=== PATIENT | male | born 1945 | race African-American/Black ===

== ENCOUNTER 2018-07-06 06:34 | Emergency (ER) | payer OTHER ==
[~2018-07-06] VITALS: Ht 180.3 cm; Wt 89.8 kg
[2018-07-06] MEDS ORDERED: TETRACAINE 0.5% OPHTH SOLUTION 4ML BOTTLE. OD ONE (07:30)
[2018-07-06] MEDS ORDERED: FLUORESCEIN OPHTH TEST STRIP. OD ONE (07:30)
[2018-07-06] MEDS ORDERED: ERYTHROMYCIN 0.5% OPHTH OINTMENT 1GM TUBE. OD ONE (07:45)
[2018-07-06] MEDS ORDERED: ERYT1OIN6 OP (08:19)
--- NOTE | 2018-07-06 08:20 | PHYS DOC ---
Past Medical History Past Medical History: Diabetes-Type II, High Cholesterol, Hypertension Past Surgical History: Other Additional Past Surgical Histo: hemorrhoidectomy Alcohol Use: None Drug Use: None Adult General Chief Complaint Chief Complaint: EYE PROBLEMS HPI HPI Patient is a 73 year old [f__sex] who presents with [] Review of Systems Review of Systems Constitutional: Denies fever or chills [] Eyes: Denies change in visual acuity, redness, or eye pain [] HENT: Denies nasal congestion or sore throat [] Respiratory: Denies cough or shortness of breath [] Cardiovascular: No additional information not addressed in HPI [] GI: Denies abdominal pain, nausea, vomiting, bloody stools or diarrhea [] : Denies dysuria or hematuria [] Musculoskeletal: Denies back pain or joint pain [] Integument: Denies rash or skin lesions [] Neurologic: Denies headache, focal weakness or sensory changes [] Endocrine: Denies polyuria or polydipsia [] All other systems were reviewed and found to be within normal limits, except as documented in this note. Current Medications Current Medications Current Medications Medications (Trade) Dose Ordered Sig/Jossie Start Time Stop Time Status Last Admin Dose Admin Diltiazem HCl (Cardizem 24hr Cd) 240 mg 1X ONCE 07/06/18 07:45 07/06/18 07:47 DC 07/06/18 07:56 240 MG Erythromycin (Romycin) 0.25 inch 1X ONCE 07/06/18 07:45 07/06/18 07:46 DC 07/06/18 07:49 0.25 INCH Fluorescein Sodium (Ful-[place]) 1 strip 1X ONCE 07/06/18 07:30 07/06/18 07:33 DC 07/06/18 07:48 1 STRIP Tetracaine HCl (Tetracaine) 2 drop 1X ONCE 07/06/18 07:30 07/06/18 07:33 DC 07/06/18 07:48 2 DROP Allergies Allergies Allergies Coded Allergies Type Severity Reaction Last Updated Verified lisinopril Adverse Reaction Intermediate coughing 07/06/18 Yes Physical Exam Physical Exam Constitutional: Well developed, well nourished, no acute distress, non-toxic appearance. [] HENT: Normocephalic, atraumatic, bilateral external ears normal, oropharynx moist, no oral exudates, nose normal. [] Eyes: PERRLA, EOMI, conjunctiva normal, no discharge. [] Neck: Normal range of motion, no tenderness, supple, no stridor. [] Cardiovascular:Heart rate regular rhythm, no murmur [] Lungs & Thorax: Bilateral breath sounds clear to auscultation [] Abdomen: Bowel sounds normal, soft, no tenderness, no masses, no pulsatile masses. [] Skin: Warm, dry, no erythema, no rash. [] Back: No tenderness, no CVA tenderness. [] Extremities: No tenderness, no cyanosis, no clubbing, ROM intact, no edema. [] Neurologic: Alert and oriented X 3, normal motor function, normal sensory function, no focal deficits noted. [] Psychologic: Affect normal, judgement normal, mood normal. [] Tonopen pressures: 24, 22, 24 of right eye Current Patient Data Vital Signs Vital Signs Date Time Temp Pulse Resp B/P (MAP) Pulse Ox O2 Delivery O2 Flow Rate FiO2 07/06/18 07:56 87 184/85 07/06/18 07:15 98.3 20 96 Room Air 98.3 EKG EKG [] Radiology/Procedures Radiology/Procedures [] Course & Med Decision Making Course & Med Decision Making Pertinent Labs and Imaging studies reviewed. (See chart for details) [] Dragon Disclaimer Dragon Disclaimer This electronic medical record was generated, in whole or in part, using a voice recognition dictation system. Departure Departure Impression: Primary Impression: Corneal abrasion Disposition: 01 HOME, SELF-CARE Condition: STABLE Referrals: NO PCP (PCP) Liz LIU MD Patient Instructions: Eye - Corneal Abrasion, [id number] Scripts Erythromycin Base (Erythromycin) 1 Gm Oint...g. 0.5 INCH OP QID for 5 Days, MISC Prov: CAMDEN OLIVERA DO 07/06/18 Problem Qualifiers Primary Impression: Corneal abrasion Encounter type: initial encounter Laterality: right Qualified Codes: S05.01XA - Injury of conjunctiva and corneal abrasion without foreign body, right eye, initial encounter CAMDEN OLIVERA DO Jul 06, 2018 08:20
[2018-07-06 08:23] VITALS: BP 173/87
== END 2018-07-06 08:23 | disposition home or self-care (01) ==
LOC: ER 06:34
DX: S05.01XA Injury of conjunctiva and corneal abrasion without foreign body, right eye, initial encounter (principal); E11.9 Type 2 diabetes mellitus without complications; E78.00 Pure hypercholesterolemia, unspecified; I10 Essential (primary) hypertension; Z88.8 Allergy status to other drugs, medicaments and biological substances; X58.XXXA Exposure to other specified factors, initial encounter; Y93.89 Activity, other specified; Y92.89 Other specified places as the place of occurrence of the external cause; Y99.8 Other external cause status
CPT/HCPCS: 99284

== ENCOUNTER 2021-05-28 16:45 | Inpatient (IN) | payer MEDICARE, OTHER ==
[~2021-05-28] VITALS: Ht 180.3 cm; Wt 86.4 kg
[~2021-05-28 16:45] MED LIST: ERYT1OIN6 OP
[2021-05-28] MEDS ORDERED: NITROGLYCERIN SUBLINGUAL 0.4 MG BOTTLE OF 25. SL PRN (17:00)
--- NOTE | 2021-05-28 17:28 | PHYS DOC ---
Past Medical History Past Medical History: Diabetes-Type II, High Cholesterol, Hypertension Past Surgical History: Other Additional Past Surgical Histo: hemorrhoidectomy, Abdomen Trauma surgery Smoking Status: Never Smoker Alcohol Use: None Drug Use: None General Adult EDM: Chief Complaint: NAUSEA/VOMITING/DIARRHEA HPI: HPI: Patient is a 76 year old male who presents with EMS for nausea and vomiting, dizziness that started last night. Patient reports he has vomited multiple times today as well. Denies fever, denies diarrhea. No chest pain or shortness of breath. Denies take anything at home for symptoms. History of hypertension, diabetes. Review of Systems: Review of Systems: ROS At least 10 ROS systems have been reviewed and are negative except as documented in the HPI. General: Negative except as outlined in HPI above. Skin: Negative except as outlined in HPI above. HEENT: Negative except as outlined in HPI above. Neck: Negative except as outlined in HPI above. Respiratory: Negative except as outlined in HPI above.. Cardiovascular: Negative except as outlined in HPI above. Abdomen: Negative except as outlined in HPI above. : Negative except as outlined in HPI above. Back/MSK: Negative except as outlined in HPI above. Neuro: Negative except as outlined in HPI above. Psych: Negative except as outlined in HPI above. Heart Score: C/O Chest Pain: No Risk Factors: Risk Factors: DM, Current or recent (<one month) smoker, HTN, HLP, family history of CAD, obesity. Risk Scores: Score 0 - 3: 2.5% MACE over next 6 weeks - Discharge Home Score 4 - 6: 20.3% MACE over next 6 weeks - Admit for Clinical Observation Score 7 - 10: 72.7% MACE over next 6 weeks - Early Invasive Strategies Current Medications: Current Medications Medications (Trade) Dose Ordered Sig/Jossie Start Time Stop Time Status Last Admin Dose Admin Nitroglycerin (Nitrostat) 0.4 mg PRN Q5MIN PRN 05/28/21 17:00 Allergies: Allergies: Allergies Coded Allergies Type Severity Reaction Last Updated Verified lisinopril Adverse Reaction Intermediate coughing 07/06/18 Yes Physical Exam: PE: Constitutional: Well developed, no acute distress, non-toxic appearance. [] HENT: Normocephalic, bilateral external ears normal, oropharynx moist Eyes: PERRLA, conjunctiva normal, no discharge. [] Neck: Normal range of motion, no tenderness, no stridor. [] Cardiovascular:Heart rate regular rhythm, no murmur [] Lungs & Thorax: Bilateral breath sounds clear to auscultation [] Abdomen: Bowel sounds normal, soft, no tenderness, no masses, no pulsatile masses. [] Skin: Warm, dry, no erythema, no rash. [] Back: No tenderness, no CVA tenderness. [] Extremities: No tenderness, no cyanosis, no clubbing, ROM intact, no edema. [] Neurologic: Alert and oriented X 3, normal motor function, normal sensory function, no focal deficits noted. [] Psychologic: Affect normal, judgement normal, mood normal. [] Current Patient Data: Vital Signs: Vital Signs Date Time Temp Pulse Resp B/P (MAP) Pulse Ox O2 Delivery O2 Flow Rate FiO2 05/28/21 16:45 98.6 92 16 192/103 (132) 98 Room Air 98.6 EKG: EKG: Sinus rhythm, heart rate [address] elevation or depression. [] Radiology/Procedures: Radiology/Procedures: [] Course & Med Decision Making: Course & Med Decision Making Pertinent Labs and Imaging studies reviewed. (See chart for details) [] 76-year-old male presents with nausea and vomiting and dizziness since yesterday. Patient denying chest pain or shortness of breath. Work-up in ER consisted of EKG, urinalysis, labs, troponin, BMP, chest x-ray. Patient's nausea treated while in the ER. Patient given NS bolus. EMS had concerns for STEMI based on patient's EKG. Dr. Curiel was consulted by Dr. Lazaro regarding patient's EKG. Dr. Curiel canceled the STEMI. Patient's blood pressure is elevated on arrival. Patient given sublingual nitro. Patient's blood pressure improved after nitro administration. 178/98. Denying pain. Patient also reports that his nausea has improved since medication was administered. Troponins elevated 1994. I called Dr. Curiel and updated him on patient's status. Dr. Curiel recommended heparin drip to be started and patient be admitted for a heart cath in the morning. Heparin bolus [place] [address] , creatinine 1.7. All other labs are unremarkable. Discussed all results with patient. Patient is appreciative and okay with admission plan. Spoke with Dr. Akers who will be accepting patient for NSTEMI, nausea vomiting and dizziness. Serena Disclaimer: Serena Disclaimer: This electronic medical record was generated, in whole or in part, using a voice recognition dictation system. Departure Departure Impression: Primary Impression: NSTEMI (non-ST elevated myocardial infarction) Additional Impressions: Dizziness Nausea & vomiting Qualified Codes: R11.2 - Nausea with vomiting, unspecified Disposition: ADMITTED INPATIENT Admitting Physician: RAS Condition: STABLE Referrals: NO PCP (PCP) JANESSA MESSER APRN May 28, 2021 17:28
[2021-05-28 17:44] LABS: BASO % 1 % (0-3); EOS % 0 % (0-3); HEMATOCRIT 47.9 % (39.0-53.0); HEMOGLOBIN 15.1 g/dL (13.0-17.5); LYMPH # 0.9 x10^3/uL (1.0-4.8); LYMPH % 15 % (24-48); MEAN CORPUSCULAR HEMOGLOBIN 27 pg (25-35); MEAN CORPUSCULAR HGB CONC 32 g/dL (31-37); MEAN CORPUSCULAR VOLUME 85 fL (79-100); MONO # 0.2 x10^3/uL (0.0-1.1); MONO % 3 % (0-9); NEUT # 4.9 x10^3/uL (1.8-7.7); NEUT % 82 % (31-73); PLATELET COUNT 231 x10^3/uL (140-400); RED BLOOD COUNT 5.64 x10^6/uL (4.30-5.70); RED CELL DISTRIBUTION WIDTH 14.5 % (11.5-14.5)
[2021-05-28] MEDS ORDERED: IV NORMAL SALINE 1000ML BAG 1,000 ML IV SCH (17:45)
[2021-05-28 17:58] LABS: CALCIUM 9.1 mg/dL (8.5-10.1); CREATININE 1.7 mg/dL (0.7-1.3); GFR 47.9; POTASSIUM 4.2 mmol/L (3.5-5.1)
[2021-05-28] MEDS ORDERED: ONDANSETRON PF 4 MG/2 ML VIAL. IVP ONE (18:00)
[2021-05-28 18:03] LABS: ALBUMIN 2.8 g/dL (3.4-5.0); ALBUMIN/GLOBULIN RATIO 0.5 (1.0-1.7); TOTAL BILIRUBIN 0.8 mg/dL (0.2-1.0); TOTAL PROTEIN 8.3 g/dL (6.4-8.2)
[2021-05-28] MEDS ORDERED: HEPARIN 25,000UTS/250ML PREMIX 250 ML IV PRN (18:45)
[2021-05-28] MEDS ORDERED: HEPARIN for IV BOLUS 10,000 UNIT/10 ML VIAL. IV PRN ×3 (18:45→20:30)
--- NOTE | 2021-05-28 18:59 | RAD ---
XR CHEST 1V Clinical History: Reason: dizzy / Spl. Instructions: / History: Technique: AP view of the chest was obtained at 05/28/2021 6:07 PM. Comparison: None. Findings: The heart is normal size. The pulmonary vessels appear normal. Decreased reticular opacities of the l ungs. Patchy opacity in the lung bases and obscuration of the diaphragm. Impression: Pulmonary infiltrates could be CHF or atypical pneumonia. Electronically signed by: Sheldon Taveras III, MD (05/28/2021 6:56 PM) [facility]
--- NOTE | 2021-05-28 19:31 | PDOC1 ---
History and Physical Date of Service: DOS: DATE: 05/28/21 TIME: 19:31 Allergies: Allergies: Coded Allergies: lisinopril (Verified Adverse Reaction, Intermediate, coughing, 07/06/18) Current Medications: Current Medications Current Medications Nitroglycerin (Nitrostat) 0.4 mg PRN Q5MIN PRN SL CHEST PAIN; Start 05/28/21 at 17:00 Ondansetron HCl (Zofran) 4 mg 1X ONCE IVP ; Start 05/28/21 at 18:00; Stop 05/28/21 at 18:01; Status DC Sodium Chloride 1,000 ml @ 1,000 mls/hr Q1H IV Last administered on 05/28/21at 18:17; Start 05/28/21 at 17:45; Stop 05/28/21 at 18:44; Status DC Heparin Sodium/ Dextrose 250 ml @ 10 mls/hr CONT PRN IV PER PROTOCOL; Start 05/28/21 at 18:45 Heparin Sodium (Porcine) (Heparin Sodium) 2,300 unit PRN Q6HRS PRN IV FOR UFH LEVEL LESS THAN 0.2; Start 05/28/21 at 18:45 Active Scripts Active Erythromycin (Erythromycin Base) 1 Gm Oint...g. 0.5 Inch OP QID 5 Days ROS: Review of Systems Review of System REVIEW OF SYSTEMS: GENERAL: Denies weakness SKIN: No bruising, hair changes or rashes. EYES: No blurred, double or loss of vision. NOSE AND THROAT: No history of nosebleeds, hoarseness or sore throat. HEART: No history of palpitations, chest pain or shortness of breath on exertion. LUNGS: Denies cough, hemoptysis, wheezing or shortness of breath. GASTROINTESTINAL: Denies changes in appetite, nausea, vomiting, diarrhea or constipation. GENITOURINARY: No history of frequency, urgency, hesitancy or nocturia. NEUROLOGIC: Denies history of numbness, tingling, or tremor. PSYCHIATRIC: No history of panic, anxiety or depression. ENDOCRINE: No history of heat or cold intolerance, polyuria or polydipsia. EXTREMITIES: Denies joint pain, pain on walking or stiffness. Physical Exam: Vital Signs: Vital Signs Date Time Temp Pulse Resp B/P (MAP) Pulse Ox O2 Delivery O2 Flow Rate FiO2 05/28/21 16:45 98.6 92 16 192/103 (132) 98 Room Air 98.6 Physcial Exam: GEN: No apparent distress. Alert and oriented HEENT: Normal cephalic, atraumatic, external auditory canals are patent EYES: Extraocular muscles are intact, pupil are equally round and reactive to light and accommodation MUSCULOSKELETAL: Well developed , well nourished, good range of motion ENDOCRINE: No thyromegaly was palpated LYMPHATICS: No cervical chain or axillary nodes were noted HEMATOPOIETIC: No bruising NECK: Supple, no JVD, no thyromegaly was noted LUNGS: Clear to auscultation in all lung sosa without rhonchi or wheezing HEART: RRR, S!, S2 present. Peripheral pulses intact, no obvious murmurs noted ABDOMEN: Soft, nontender. Positive bowel sounds, no organomegaly, normal bowel sounds EXTREMITIES: Without clubbing, cyanosis, or edema. Pedal pulses intact. Negative Homans sign NEUROLOGIC: Normal speech and tone. A&O x 3, moves all extremities, no obvious focal deficits PSYCHIATRIC: Normal affect, normal mood. Stable SKIN: No ulcerations or rashes, good skin turgor, no jaundice VASCULAR: Good capillary refill, neurovascular bundle appears to be intact Labs: Labs: Laboratory Tests Test 05/28/21 17:00 White Blood Count 6.0 x10^3/uL (4.0-11.0) Red Blood Count 5.64 x10^6/uL (4.30-5.70) Hemoglobin 15.1 g/dL (13.0-17.5) Hematocrit 47.9 % (39.0-53.0) Mean Corpuscular Volume 85 fL (79-100) Mean Corpuscular Hemoglobin 27 pg (25-35) Mean Corpuscular Hemoglobin Concent 32 g/dL (31-37) Red Cell Distribution Width 14.5 % (11.5-14.5) Platelet Count 231 x10^3/uL (140-400) Neutrophils (%) (Auto) 82 % (31-73) Lymphocytes (%) (Auto) 15 % (24-48) Monocytes (%) (Auto) 3 % (0-9) Eosinophils (%) (Auto) 0 % (0-3) Basophils (%) (Auto) 1 % (0-3) Neutrophils # (Auto) 4.9 x10^3/uL (1.8-7.7) Lymphocytes # (Auto) 0.9 x10^3/uL (1.0-4.8) Monocytes # (Auto) 0.2 x10^3/uL (0.0-1.1) Eosinophils # (Auto) 0.0 x10^3/uL (0.0-0.7) Basophils # (Auto) 0.0 x10^3/uL (0.0-0.2) Sodium Level 139 mmol/L (136-145) Potassium Level 4.2 mmol/L (3.5-5.1) Chloride Level 102 mmol/L (98-107) Carbon Dioxide Level 25 mmol/L (21-32) Anion Gap 12 (6-14) Blood Urea Nitrogen 26 mg/dL (8-26) Creatinine 1.7 mg/dL (0.7-1.3) Estimated GFR (Cockcroft-Gault) 47.9 BUN/Creatinine Ratio 15 (6-20) Glucose Level 424 mg/dL (70-99) Calcium Level 9.1 mg/dL (8.5-10.1) Magnesium Level 2.0 mg/dL (1.8-2.4) Total Bilirubin 0.8 mg/dL (0.2-1.0) Aspartate Amino Transf (AST/SGOT) 35 U/L (15-37) Alanine Aminotransferase (ALT/SGPT) 24 U/L (16-63) Alkaline Phosphatase 134 U/L (46-116) Troponin I High Sensitivity 1995 ng/L (4-75) RA-Ptu-V-Type Natriuretic Peptide 19192 pg/mL (0-124) Total Protein 8.3 g/dL (6.4-8.2) Albumin 2.8 g/dL (3.4-5.0) Albumin/Globulin Ratio 0.5 (1.0-1.7) Laboratory Tests Test 05/28/21 17:00 White Blood Count 6.0 x10^3/uL (4.0-11.0) Red Blood Count 5.64 x10^6/uL (4.30-5.70) Hemoglobin 15.1 g/dL (13.0-17.5) Hematocrit 47.9 % (39.0-53.0) Mean Corpuscular Volume 85 fL (79-100) Mean Corpuscular Hemoglobin 27 pg (25-35) Mean Corpuscular Hemoglobin Concent 32 g/dL (31-37) Red Cell Distribution Width 14.5 % (11.5-14.5) Platelet Count 231 x10^3/uL (140-400) Neutrophils (%) (Auto) 82 % (31-73) Lymphocytes (%) (Auto) 15 % (24-48) Monocytes (%) (Auto) 3 % (0-9) Eosinophils (%) (Auto) 0 % (0-3) Basophils (%) (Auto) 1 % (0-3) Neutrophils # (Auto) 4.9 x10^3/uL (1.8-7.7) Lymphocytes # (Auto) 0.9 x10^3/uL (1.0-4.8) Monocytes # (Auto) 0.2 x10^3/uL (0.0-1.1) Eosinophils # (Auto) 0.0 x10^3/uL (0.0-0.7) Basophils # (Auto) 0.0 x10^3/uL (0.0-0.2) Sodium Level 139 mmol/L (136-145) Potassium Level 4.2 mmol/L (3.5-5.1) Chloride Level 102 mmol/L (98-107) Carbon Dioxide Level 25 mmol/L (21-32) Anion Gap 12 (6-14) Blood Urea Nitrogen 26 mg/dL (8-26) Creatinine 1.7 mg/dL (0.7-1.3) Estimated GFR (Cockcroft-Gault) 47.9 BUN/Creatinine Ratio 15 (6-20) Glucose Level 424 mg/dL (70-99) Calcium Level 9.1 mg/dL (8.5-10.1) Magnesium Level 2.0 mg/dL (1.8-2.4) Total Bilirubin 0.8 mg/dL (0.2-1.0) Aspartate Amino Transf (AST/SGOT) 35 U/L (15-37) Alanine Aminotransferase (ALT/SGPT) 24 U/L (16-63) Alkaline Phosphatase 134 U/L (46-116) Troponin I High Sensitivity 1995 ng/L (4-75) TS-Bgr-U-Type Natriuretic Peptide 57314 pg/mL (0-124) Total Protein 8.3 g/dL (6.4-8.2) Albumin 2.8 g/dL (3.4-5.0) Albumin/Globulin Ratio 0.5 (1.0-1.7) Justifications for Admission Other Justification HERBER MADDEN MD May 28, 2021 19:31
[2021-05-28 20:11] LABS: BARBITURATES NEG (NEG); BENZODIAZEPINES NEG (NEG); CANNABINOIDS NEG (NEG); COCAINE NEG (NEG); METHADONE NEG (NEG); OPIATES NEG (NEG); PHENCYCLIDINE NEG (NEG)
[2021-05-28 20:12] LABS: AMPHETAMINE/METHAMPHETAMINE NEG (NEG)
[2021-05-28 20:41] LABS: CLARITY,URINE CLEAR; COLOR,URINE YELLOW
[2021-05-28 20:42] LABS: BILIRUBIN,URINE NEGATIVE (NEG); NITRITE,URINE NEGATIVE (NEG); PROTEIN,URINE >=300 mg/dL (NEG-TRACE); UROBILINOGEN,URINE 0.2 mg/dL (0.2 mg/dL)
[2021-05-28 20:43] LABS: HYALINE CASTS, URINE FEW /HPF
[2021-05-28 20:44] LABS: BACTERIA,URINE 0 /HPF (0-FEW)
[2021-05-28 22:00] VITALS: BP 176/91
--- NOTE | 2021-05-28 22:15 | NUR ---
The patient, KALIA HALL, 76 y/o, M admitted by HERBER MADDEN MD, was given written information regarding hospital policies, unit procedures and contact persons. PT TO FLOOR ON A HEPARIN DRIP. PER PROTOCOL. PT DENIES PAIN OR SOB. WOUND ON LEFT FOOT SECOND TOE, AND GREAT TOE ON TIP HAS THICK FLAKEY SKIN. WOUND CLINIC CONSULTED. SEE PICTURES Valuables were checked and DOCUMENTED IN [facility].
[2021-05-28] MEDS ORDERED: INSULIN LISPRO 300 UNITS/3 ML VIAL. SQ ONE (22:45)
[2021-05-28] MEDS ORDERED: ACET500T68 PO (22:50)
[2021-05-28] MEDS ORDERED: IBUP-1007 PO (22:52)
[2021-05-28] MEDS ORDERED: ATOR40TA59 PO (22:52)
[2021-05-28] MEDS ORDERED: FURO-68 PO (22:52)
[2021-05-28] MEDS ORDERED: INSU100I13 SQ (22:52)
[2021-05-28] MEDS ORDERED: BLOOD PRESSURE MED PO (23:02)
[2021-05-28] MEDS ORDERED: [UNRECOGNIZED DRUG - REMARK] PO (23:03)
[2021-05-28 23:08] VITALS: BP 167/95
[2021-05-29] VITALS (14 sets, daily range): BP systolic 153–204; BP diastolic 78–104
[2021-05-29] MEDS: ACETAMINOPHEN 325 MG TABLET. PO PRN ×2 (00:02→17:34)
--- NOTE | 2021-05-29 02:30 | NUR ---
PT HAD 300 OF CLEAR BROWN EMESIS WITH RANDOM BLACK FLAKES. CALL PENDING TO DR SANCHES AND DR MADDEN. NEEDING ZOAN..... [facility]
[2021-05-29 03:21] LABS: HEMATOCRIT 42.6 % (39.0-53.0); RED BLOOD COUNT 5.05 x10^6/uL (4.30-5.70); RED CELL DISTRIBUTION WIDTH 14.2 % (11.5-14.5); WHITE BLOOD COUNT 6.8 x10^3/uL (4.0-11.0)
--- NOTE | 2021-05-29 03:38 | NUR ---
UFH IS 0.37. NO CHANGE. UFH IN 6 HOURS, LCRN
--- NOTE | 2021-05-29 04:51 | NUR ---
received [facility] dr [facility]
[2021-05-29] MEDS: ONDANSETRON PF 4 MG/2 ML VIAL. IVP PRN ×2 (05:14→17:35)
[2021-05-29] MEDS ORDERED: IV NORMAL SALINE 1000ML BAG 1,000 ML IV ONE (09:45)
--- NOTE | 2021-05-29 09:53 | PDOC2 ---
BRENDEN DOUGHERTY PARKING OFFICER 05/29/21 0953: CARDIAC CONSULT DATE OF CONSULT Date of Consult DATE: 05/29/21 TIME: 09:41 REASON FOR CONSULT Reason for Consult: NSTEMI REFERRING PHYSICIAN Referring Physician: Oswald SOURCE Source: Chart review, Patient HISTORY OF PRESENT ILLNESS HISTORY OF PRESENT ILLNESS This is a pleasant 76 yo male admitted for complains of nausea and vomiting and SOA. No chest pain but has been having some dyspnea on exertion. This occurred yesterday with associated dizziness and vertigo as well. No viral symptoms. No known hx of CAD, CVA, nor arrhythmias. He has HTN, HLP and DM2. 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 He is unvaccinated for covid-19. He does not take ASA. PAST MEDICAL HISTORY Cardiovascular: HTN, Hyperlipidemia Pulmonary: No pertinent hx CENTRAL NERVOUS SYSTEM: Other (No pertinent history) GI: No pertinent hx Heme/Onc: No pertinent hx Hepatobiliary: No pertinent hx Psych: No pertinent hx Musculoskeletal: Other (trauma requiring abdominal surgery and splenectomy) Rheumatologic: No pertinent hx Infectious disease: No pertinent hx ENT: No pertinent hx Renal/: Chronic renal insuff Endocrine: Diabetes (2) Dermatology: No pertinent hx PAST SURGICAL HISTORY Past Surgical History: Other (splenectomy) FAMILY HISTORY Family History noncontributory to CV SOCIAL HISTORY Smoke: Quit (18 yrs ago 20 pk yr at least) CURRENT MEDICATIONS CURRENT MEDICATIONS Current Medications Medications (Trade) Dose Ordered Sig/Jossie Route PRN Reason Start Time Stop Time Status Last Admin Dose Admin Sodium Chloride 1,000 ml @ 1,000 mls/hr Q1H IV 05/28/21 17:45 05/28/21 18:44 DC 05/28/21 18:17 Heparin Sodium/ Dextrose 250 ml @ 10 mls/hr CONT PRN IV PER PROTOCOL 05/28/21 18:45 05/28/21 20:27 Heparin Sodium (Porcine) (Heparin Sodium) 3,500 unit PRN Q6HRS PRN IV FOR UFH LEVEL 0.2 - 0.29 05/28/21 20:15 05/28/21 20:26 Insulin Human Lispro (HumaLOG) 10 units ONCE ONCE SQ 05/28/21 22:45 05/28/21 22:46 DC 05/29/21 00:04 Acetaminophen (Tylenol) 650 mg PRN Q4HRS PRN PO MILD PAIN / TEMP > 100.3'F 05/28/21 23:45 05/29/21 00:02 Ondansetron HCl (Zofran) 4 mg PRN Q4HRS PRN IVP NAUSEA/VOMITING 05/29/21 05:00 05/29/21 05:14 ALLERGIES ALLERGIES: Coded Allergies: lisinopril (Verified Adverse Reaction, Intermediate, coughing, 07/06/18) insulin regular (Verified Adverse Reaction, Mild, Nausea, cramps in legs, 05/28/21) ROS Review of System 14 point ROS evaluated with pertinent positives noted per HPI PHYSICAL EXAM General: Alert, Oriented X3, Cooperative, No acute distress HEENT: Atraumatic, Mucous membr. moist/pink Lungs: Clear to auscultation, Normal air movement Heart: Regular rate (SR), Normal S1, Normal S2, No murmurs Abdomen: Soft, No tenderness Extremities: No cyanosis, Other (1-2+ bilateral LE pitting edema, diminished pedal pulses) Skin: No breakdown, No significant lesion, Other (healed second toe wound from 3 weeks ago) Neuro: Normal speech, Sensation intact Psych/Mental Status: Mental status NL, Mood NL MUSCULOSKELETAL: Osteoarthritic changes both hands VITALS/I&O VITALS/I&O: Vital Signs Date Time Temp Pulse Resp B/P (MAP) Pulse Ox O2 Delivery O2 Flow Rate FiO2 05/29/21 06:39 98.1 79 16 170/89 (116) 94 Room Air 98.1 I & O 05/28/21 05/28/21 05/29/21 15:00 23:00 07:00 Intake Total 100 ml Output Total 600 ml Balance -500 ml LABS Lab: Laboratory Tests Test 05/28/21 17:00 05/28/21 19:48 05/28/21 22:30 05/29/21 02:45 White Blood Count 6.0 x10^3/uL (4.0-11.0) 6.8 x10^3/uL (4.0-11.0) Red Blood Count 5.64 x10^6/uL (4.30-5.70) 5.05 x10^6/uL (4.30-5.70) Hemoglobin 15.1 g/dL (13.0-17.5) 14.0 g/dL (13.0-17.5) Hematocrit 47.9 % (39.0-53.0) 42.6 % (39.0-53.0) Mean Corpuscular Volume 85 fL (79-100) 85 fL (79-100) Mean Corpuscular Hemoglobin 27 pg (25-35) 28 pg (25-35) Mean Corpuscular Hemoglobin Concent 32 g/dL (31-37) 33 g/dL (31-37) Red Cell Distribution Width 14.5 % (11.5-14.5) 14.2 % (11.5-14.5) Platelet Count 231 x10^3/uL (140-400) 208 x10^3/uL (140-400) Neutrophils (%) (Auto) 82 % (31-73) H Lymphocytes (%) (Auto) 15 % (24-48) L Monocytes (%) (Auto) 3 % (0-9) Eosinophils (%) (Auto) 0 % (0-3) Basophils (%) (Auto) 1 % (0-3) Neutrophils # (Auto) 4.9 x10^3/uL (1.8-7.7) Lymphocytes # (Auto) 0.9 x10^3/uL (1.0-4.8) L Monocytes # (Auto) 0.2 x10^3/uL (0.0-1.1) Eosinophils # (Auto) 0.0 x10^3/uL (0.0-0.7) Basophils # (Auto) 0.0 x10^3/uL (0.0-0.2) Sodium Level 139 mmol/L (136-145) Potassium Level 4.2 mmol/L (3.5-5.1) Chloride Level 102 mmol/L (98-107) Carbon Dioxide Level 25 mmol/L (21-32) Anion Gap 12 (6-14) Blood Urea Nitrogen 26 mg/dL (8-26) Creatinine 1.7 mg/dL (0.7-1.3) H Estimated GFR (Cockcroft-Gault) 47.9 BUN/Creatinine Ratio 15 (6-20) Glucose Level 424 mg/dL (70-99) H Calcium Level 9.1 mg/dL (8.5-10.1) Magnesium Level 2.0 mg/dL (1.8-2.4) Total Bilirubin 0.8 mg/dL (0.2-1.0) Aspartate Amino Transferase (AST) 35 U/L (15-37) Alanine Aminotransferase (ALT) 24 U/L (16-63) Alkaline Phosphatase 134 U/L (46-116) H Troponin I High Sensitivity 1995 ng/L (4-75) H QB-Qnd-C-Type Natriuretic Peptide 72349 pg/mL (0-124) H Total Protein 8.3 g/dL (6.4-8.2) H Albumin 2.8 g/dL (3.4-5.0) L Albumin/Globulin Ratio 0.5 (1.0-1.7) L Urine Collection Type Unknown Urine Color Yellow Urine Clarity Clear Urine pH 5.0 (<5.0-8.0) Urine Specific Carrington 1.025 (1.000-1.030) Urine Protein >=300 mg/dL (NEG-TRACE) Urine Glucose (UA) >=1000 mg/dL (NEG) Urine Ketones (Stick) 40 mg/dL (NEG) Urine Blood Moderate (NEG) Urine Nitrite Negative (NEG) Urine Bilirubin Negative (NEG) Urine Urobilinogen Dipstick 0.2 mg/dL (0.2 mg/dL) Urine Leukocyte Esterase Negative (NEG) Urine RBC 3-5 /HPF (0-2) Urine WBC 1-4 /HPF (0-4) Urine Squamous Epithelial Cells Few /LPF Urine Bacteria 0 /HPF (0-FEW) Urine Hyaline Casts Few /HPF Urine Mucus Slight /LPF Urine Opiates Screen Neg (NEG) Urine Methadone Screen Neg (NEG) Urine Barbiturates Neg (NEG) Urine Phencyclidine Screen Neg (NEG) Urine Amphetamine/Methamphetamine Neg (NEG) Urine Benzodiazepines Screen Neg (NEG) Urine Cocaine Screen Neg (NEG) Urine Cannabinoids Screen Neg (NEG) Urine Ethyl Alcohol Neg (NEG) Glucose (Fingerstick) 397 mg/dL (70-99) H Heparin Anti-Xa Act, Unfractionated 0.37 IU/mL (0.30-0.70) Test 05/29/21 07:05 Glucose (Fingerstick) 271 mg/dL (70-99) H Laboratory Tests 05/28/21 17:00 05/29/21 02:45 Laboratory Tests 05/28/21 17:00 ASSESSMENT/PLAN ASSESSMENT/PLAN 1. NSTEMI 2. DM2 3. HTN: labile 4. HLP 5. 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 Mild acute CHF with possible diastolic dysfunction Recommendations 1. Unvaccinated, covid-19 swab. [facility] today, risks and benefits discussed and agreeable to proceed. 2. Heparin ongoing. ASA. Start on IVF 3. TTE, FLP, TSH 4. Metoprolol x1. Secondary prevention measures pending tests. WESLEY CHRISTIANSON MD 05/30/21 0755: CARDIAC CONSULT ASSESSMENT/PLAN ASSESSMENT/PLAN Late entry for 05/29/2021 Patient seen and examined. Agree with above nurse practitioner note. See cath report for full details. BRENDEN DOUGHERTY APRN May 29, 2021 09:53 WESLEY CHRISTIANSON MD May 30, 2021 07:55
--- NOTE | 2021-05-29 09:56 | EKG ---
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
[2021-05-29] MEDS ORDERED: METOPROLOL TART IMMED RELEASE 25 MG TABLET. PO ONE (10:00)
[2021-05-29 10:06] LABS: CALCIUM 8.3 mg/dL (8.5-10.1); CREATININE 1.8 mg/dL (0.7-1.3); GFR 44.9; POTASSIUM 3.8 mmol/L (3.5-5.1)
[2021-05-29 10:10] LABS: CHOLESTEROL/HDL RATIO 4.1
[2021-05-29] MEDS: ASPIRIN ENTERIC COATED 81 MG TABLET.DR. PO SCH (10:10)
[2021-05-29] MEDS ORDERED: LIDOCAINE 1% PF 2 ML VIAL. ONE (10:52)
[2021-05-29] MEDS ORDERED: MIDAZOLAM HCL/PF 2 MG/2 ML VIAL. ONE (11:15)
[2021-05-29] MEDS ORDERED: fentaNYL PF VIAL 100 MCG/2 ML VIAL ONE (11:15)
[2021-05-29] MEDS ORDERED: VERAPAMIL 5 MG/2 ML VIAL. ONE (11:16)
[2021-05-29] MEDS ORDERED: HEPARIN for IV BOLUS 10,000 UNIT/10 ML VIAL. ONE (11:16)
[2021-05-29] MEDS ORDERED: NITROGLYCERIN 200 MCG/2 ML SYRINGE FOR CATH/VASC LAB. ONE ×2 (11:16→11:56)
--- NOTE | 2021-05-29 11:16 | NUR ---
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
[2021-05-29] MEDS ORDERED: IODIXANOL 320 MG/ML 100 ML VIAL. ONE (11:17)
[2021-05-29] MEDS ORDERED: TIROFIBAN 12.5MG -0.9% NS 250 ML IV ONE (11:35)
[2021-05-29] MEDS ORDERED: LIDOCAINE 1% PF 2 ML VIAL. INJ ONE (11:45)
[2021-05-29] MEDS ORDERED: MIDAZOLAM HCL/PF 2 MG/2 ML VIAL. IV ONE (11:45)
[2021-05-29] MEDS ORDERED: TIROFIBAN 12.5MG -0.9% NS 250 ML IV PRN (11:45)
[2021-05-29] MEDS ORDERED: HEPARIN for IV BOLUS 10,000 UNIT/10 ML VIAL. IART ONE (11:45)
[2021-05-29] MEDS ORDERED: NITROGLYCERIN 200 MCG/2 ML SYRINGE FOR CATH/VASC LAB. IART ONE (11:45)
[2021-05-29] MEDS ORDERED: HEPARIN for IV BOLUS 10,000 UNIT/10 ML VIAL. IV ONE (11:45)
[2021-05-29] MEDS ORDERED: IODIXANOL 320 MG/ML 100 ML VIAL. IART ONE (11:45)
[2021-05-29] MEDS ORDERED: fentaNYL PF VIAL 100 MCG/2 ML VIAL IV ONE (11:45)
[2021-05-29] MEDS ORDERED: VERAPAMIL 5 MG/2 ML VIAL. IART ONE (11:45)
[2021-05-29] MEDS ORDERED: CLOPIDOGREL BISULFATE 75 MG TABLET ONE (11:56)
[2021-05-29] MEDS ORDERED: CLOPIDOGREL BISULFATE 75 MG TABLET PO ONE (12:00)
[2021-05-29] MEDS ORDERED: NITROGLYCERIN 200 MCG/2 ML SYRINGE FOR CATH/VASC LAB. ICAR ONE (12:00)
--- NOTE | 2021-05-29 12:14 | NUR ---
SS following for discharge planning. SS reviewed pt chart and discussed with pt RN. Pt is from home and is currently on room air. COVID19 negative. Cardiology and wound care following. Heart cath today. Tirofiban drip. PT/OT ordered. SS will continue to follow for discharge planning.
--- NOTE | 2021-05-29 12:29 | CARD ---
MR#: [id number] Date of Study: 05/29/2021 Ordering Physician: WESLEY CURIEL, Referring Physician: WESLEY CURIEL, Tech: RT Melita(R) APPROVED REPORT Technologist: Sherry Dickson RT(R) Nurse: Kat Villaseñor RN Procedure(s) performed: FLUORO TIME: 12.1 DOSE: [id number] CONTRAST:118CC MOD SEDATION: 55MIN LHC, Coronary angiography, PCI of the LAD HISTORY hypertension: dyslipidemia. INDICATION The indication(s) include : non-STEMI . [facility] Clinical Frailty Scale [facility] Clinical Frailty Scale: Moderately Frail Heart Failure Heart Failure: Yes If Yes, Newly Diagnosed: Yes If Yes, HF Type: Diastolic If Yes, NYHA Class: Class II CASE TECHNIQUE IV conscious sedation was used throughout procedure with appropriate monitoring and was performed in the presence of a registered nurse who was an independent trained observer other than the physician p erforming the procedure. During this case, Fluoroscopy and low osmolar contrast were used for imaging . Specimen(s) Removed: N/A Estimated Blood loss: 15 cc's. PROCEDURE NARRATIVE Clinical information: 76-year-old male presented to the hospital in setting of hypertension and nausea and vomiting. The p atient was found to have an elevated troponin consistent with a non-ST elevation CO and therefore he was taken to the catheterization laboratory for further evaluation and treatment. Procedure details: After appropriate informed consent the right wrist was prepped and draped in usual sterile fashion. Under 1% lidocaine local anesthesia a 6 Chadian sheath was placed in the right radial artery. Diagnos tic angiography was then performed with a 6 Chadian TIG catheter 6 Chadian JL 3.5 catheter. Findings: Aorta 180/90 LVEDP 20 mmHg No LV to aorta pullback gradient Coronary angiography: Left main is a large-caliber vessel with normal angiographic appearance LAD is a moderate caliber vessel with sequential mid 90% stenoses Circumflex is a moderate to large caliber vessel with mild luminal irregularities of up to 30% RCA is a moderate caliber vessel with mild luminal irregularities Interventional technique: Heparin and tirofiban were used for anticoagulation. Through a 6 Chadian JL 3.5 guide catheter a Prow ater wire was placed in the distal LAD. The mid sequential lesions were then angioplastied with a 2. 5 x 10 mm balloon and subsequently stented with a 2.5 x 12 mm drug-eluting stent distally and a 2.75 x 12 mm drug-eluting stent in the midsegment. The distal stent was then postdilated with a 2.5 mm no ncompliant balloon at nominal pressures. Final angiography demonstrated excellent stent expansion wi th KERRY-3 flow no evidence of guidewire related complications. At case completion the wires and smith ths were removed and hemostasis was achieved via a Terumo radial band. The patient received 600 mg o f Plavix at case completion. No acute complications Conclusion 1. Acute diastolic heart failure, LVEDP 20 mmHg 2. One-vessel coronary artery disease involving the mid to distal LAD 3. Successful PCI of the mid and distal LAD with implantation of a 2.75 x 12 mm and 2.5 x 12 mm drug -eluting stents, respectively. Recommendations Aspirin 81 mg daily Plavix 75 mg daily High-dose statin therapy and referral to cardiac [facility]. Obtain routine echocardiogram prior to discharge Signed by : Wesley Curiel, Electronically Approved : 05/29/2021 12:29:02
[2021-05-29] MEDS ORDERED: DEXTROSE 50% 25 GM / 50ML DISP.SYRIN. IV PRN (13:30)
[2021-05-29] MEDS ORDERED: IV DEXTROSE 5% 250 ML BAG. IV PRN (13:30)
--- NOTE | 2021-05-29 13:32 | PDOC ---
[employer] PROGRESS NOTE Date of Service DOS: DATE: 05/29/21 TIME: 13:28 Chief Complaint Chief Complaint Angina - with CAD s/p LAD stent x2. Dual antiplatelet, f/u cardiac recs HTN HLD CKD - monitor renal function s/p splenectomy DM2 - basal bolus plus insulin History of Present Illness History of Present Illness Mr Torres is a 76 yo male with PMHx HTN, HLD, CKD, s/p splenectomy, and DM2 who came to ED on 05/28/21 c/o nausea and vomiting. He also noted dyspnea on exertion. Had associated dizziness and vertigo as well. He is unvaccinated for covid-19. He does not take ASA. Found with elevated troponin. Placed on heparin gtt. consults: Cardiology 05/29: To cardiac cath with 2 JAMES to LAD. Dyspnea improved somewhat. Glucose in 200s. Nausea controlled with zofran. Vitals/I&O Vitals/I&O: Vital Signs Date Time Temp Pulse Resp B/P (MAP) Pulse Ox O2 Delivery O2 Flow Rate FiO2 05/29/21 12:20 94 17 97 Nasal Cannula 2.0 05/29/21 10:58 98.2 165/86 (112) 98.2 I & O 05/28/21 05/28/21 05/29/21 15:00 23:00 07:00 Intake Total 100 ml Output Total 600 ml Balance -500 ml Physical Exam General: Alert, Oriented X3, Cooperative, No acute distress Heart: Regular rate (SR), Normal S1, Normal S2, No murmurs Abdomen: Soft, No tenderness Extremities: No cyanosis, Other (1-2+ bilateral LE pitting edema, diminished pedal pulses) Skin: No breakdown, No significant lesion, Other (healed second toe wound from 3 weeks ago) Labs Labs: Laboratory Tests Test 05/28/21 17:00 05/28/21 19:48 05/28/21 22:30 05/29/21 02:45 White Blood Count 6.0 x10^3/uL (4.0-11.0) 6.8 x10^3/uL (4.0-11.0) Red Blood Count 5.64 x10^6/uL (4.30-5.70) 5.05 x10^6/uL (4.30-5.70) Hemoglobin 15.1 g/dL (13.0-17.5) 14.0 g/dL (13.0-17.5) Hematocrit 47.9 % (39.0-53.0) 42.6 % (39.0-53.0) Mean Corpuscular Volume 85 fL (79-100) 85 fL (79-100) Mean Corpuscular Hemoglobin 27 pg (25-35) 28 pg (25-35) Mean Corpuscular Hemoglobin Concent 32 g/dL (31-37) 33 g/dL (31-37) Red Cell Distribution Width 14.5 % (11.5-14.5) 14.2 % (11.5-14.5) Platelet Count 231 x10^3/uL (140-400) 208 x10^3/uL (140-400) Neutrophils (%) (Auto) 82 % (31-73) Lymphocytes (%) (Auto) 15 % (24-48) Monocytes (%) (Auto) 3 % (0-9) Eosinophils (%) (Auto) 0 % (0-3) Basophils (%) (Auto) 1 % (0-3) Neutrophils # (Auto) 4.9 x10^3/uL (1.8-7.7) Lymphocytes # (Auto) 0.9 x10^3/uL (1.0-4.8) Monocytes # (Auto) 0.2 x10^3/uL (0.0-1.1) Eosinophils # (Auto) 0.0 x10^3/uL (0.0-0.7) Basophils # (Auto) 0.0 x10^3/uL (0.0-0.2) Sodium Level 139 mmol/L (136-145) 142 mmol/L (136-145) Potassium Level 4.2 mmol/L (3.5-5.1) 3.8 mmol/L (3.5-5.1) Chloride Level 102 mmol/L (98-107) 106 mmol/L (98-107) Carbon Dioxide Level 25 mmol/L (21-32) 27 mmol/L (21-32) Anion Gap 12 (6-14) 9 (6-14) Blood Urea Nitrogen 26 mg/dL (8-26) 24 mg/dL (8-26) Creatinine 1.7 mg/dL (0.7-1.3) 1.8 mg/dL (0.7-1.3) Estimated GFR (Cockcroft-Gault) 47.9 44.9 BUN/Creatinine Ratio 15 (6-20) Glucose Level 424 mg/dL (70-99) 335 mg/dL (70-99) Calcium Level 9.1 mg/dL (8.5-10.1) 8.3 mg/dL (8.5-10.1) Magnesium Level 2.0 mg/dL (1.8-2.4) Total Bilirubin 0.8 mg/dL (0.2-1.0) Aspartate Amino Transf (AST/SGOT) 35 U/L (15-37) Alanine Aminotransferase (ALT/SGPT) 24 U/L (16-63) Alkaline Phosphatase 134 U/L (46-116) Troponin I High Sensitivity 1995 ng/L (4-75) GQ-Hap-J-Type Natriuretic Peptide 32647 pg/mL (0-124) Total Protein 8.3 g/dL (6.4-8.2) Albumin 2.8 g/dL (3.4-5.0) Albumin/Globulin Ratio 0.5 (1.0-1.7) Urine Collection Type Unknown Urine Color Yellow Urine Clarity Clear Urine pH 5.0 (<5.0-8.0) Urine Specific Roberts 1.025 (1.000-1.030) Urine Protein >=300 mg/dL (NEG-TRACE) Urine Glucose (UA) >=1000 mg/dL (NEG) Urine Ketones (Stick) 40 mg/dL (NEG) Urine Blood Moderate (NEG) Urine Nitrite Negative (NEG) Urine Bilirubin Negative (NEG) Urine Urobilinogen Dipstick 0.2 mg/dL (0.2 mg/dL) Urine Leukocyte Esterase Negative (NEG) Urine RBC 3-5 /HPF (0-2) Urine WBC 1-4 /HPF (0-4) Urine Squamous Epithelial Cells Few /LPF Urine Bacteria 0 /HPF (0-FEW) Urine Hyaline Casts Few /HPF Urine Mucus Slight /LPF Urine Opiates Screen Neg (NEG) Urine Methadone Screen Neg (NEG) Urine Barbiturates Neg (NEG) Urine Phencyclidine Screen Neg (NEG) Urine Amphetamine/Methamphetamine Neg (NEG) Urine Benzodiazepines Screen Neg (NEG) Urine Cocaine Screen Neg (NEG) Urine Cannabinoids Screen Neg (NEG) Urine Ethyl Alcohol Neg (NEG) Glucose (Fingerstick) 397 mg/dL (70-99) Heparin Anti-Xa Act, Unfractionated 0.37 IU/mL (0.30-0.70) Triglycerides Level 47 mg/dL (0-150) Cholesterol Level 215 mg/dL (0-200) LDL Cholesterol, Calculated 154 mg/dL (0-100) VLDL Cholesterol, Calculated 9 mg/dL (0-40) Non-HDL Cholesterol Calculated 163 mg/dL (0-129) HDL Cholesterol 52 mg/dL (40-60) Cholesterol/HDL Ratio 4.1 Thyroid Stimulating Hormone (TSH) 0.558 uIU/mL (0.358-3.74) Test 05/29/21 07:05 05/29/21 09:10 05/29/21 09:30 Glucose (Fingerstick) 271 mg/dL (70-99) SARS-CoV-2 Antigen (Rapid) Negative (NEGATIVE) Heparin Anti-Xa Act, Unfractionated 0.27 IU/mL (0.30-0.70) Assessment and Plan Assessmemt and Plan Problems Medical Problems: (1) Nausea & vomiting Status: Acute (2) NSTEMI (non-ST elevated myocardial infarction) Status: Acute Comment Review of Relevant I have reviewed the following items ravinder (where applicable) has been applied. Medications: Current Medications Medications (Trade) Dose Ordered Sig/Jossie Route PRN Reason Start Time Stop Time Status Last Admin Dose Admin Sodium Chloride 1,000 ml @ 1,000 mls/hr Q1H IV 05/28/21 17:45 05/28/21 18:44 DC 05/28/21 18:17 Heparin Sodium/ Dextrose 250 ml @ 10 mls/hr CONT PRN IV PER PROTOCOL 05/28/21 18:45 05/28/21 20:27 Heparin Sodium (Porcine) (Heparin Sodium) 3,500 unit PRN Q6HRS PRN IV FOR UFH LEVEL 0.2 - 0.29 05/28/21 20:15 05/28/21 20:26 Insulin Human Lispro (HumaLOG) 10 units ONCE ONCE SQ 05/28/21 22:45 05/28/21 22:46 DC 05/29/21 00:04 Acetaminophen (Tylenol) 650 mg PRN Q4HRS PRN PO MILD PAIN / TEMP > 100.3'F 05/28/21 23:45 05/29/21 00:02 Ondansetron HCl (Zofran) 4 mg PRN Q4HRS PRN IVP NAUSEA/VOMITING 05/29/21 05:00 05/29/21 05:14 Aspirin (Ecotrin) 81 mg DAILYWBKFT PO 05/29/21 12:00 05/29/21 10:10 Sodium Chloride 1,000 ml @ 75 mls/hr 1X ONCE IV 05/29/21 09:45 05/29/21 23:04 05/29/21 10:03 Metoprolol Tartrate (Lopressor) 25 mg 1X ONCE PO 05/29/21 10:00 05/29/21 10:01 DC 05/29/21 10:11 Nitroglycerin (Nitroglycerin) 200 mcg 1X ONCE IART 05/29/21 11:45 05/29/21 11:50 DC 05/29/21 11:22 Verapamil HCl (Verapamil) 2.5 mg 1X ONCE IART 05/29/21 11:45 05/29/21 11:50 DC 05/29/21 11:22 Heparin Sodium (Porcine) (Heparin Sodium) 2,500 unit 1X ONCE IART 05/29/21 11:45 05/29/21 11:50 DC 05/29/21 11:23 Heparin Sodium/ Sodium Chloride (HEPARIN for ARTERIAL LINE FLUSH) 1,000 unit 1X ONCE IART 05/29/21 11:45 05/29/21 11:50 DC 05/29/21 11:45 Midazolam HCl (Versed) 1 mg 1X ONCE IV 05/29/21 11:45 05/29/21 11:50 DC 05/29/21 11:23 Fentanyl Citrate (Fentanyl 2ml Vial) 50 mcg 1X ONCE IV 05/29/21 11:45 05/29/21 11:50 DC 05/29/21 11:23 Iodixanol (Visipaque 320) 100 ml 1X ONCE IART 05/29/21 11:45 05/29/21 11:50 DC 05/29/21 11:45 Heparin Sodium (Porcine) (Heparin Sodium) 4,000 unit 1X ONCE IV 05/29/21 11:45 05/29/21 11:50 DC 05/29/21 11:36 Tirofiban/Sodium Chloride 250 ml @ 0 mls/hr CONT PRN IV PER PROTOCOL 05/29/21 11:45 05/29/21 11:37 Lidocaine HCl (Xylocaine-Mpf 1% 2ml Vial) 2 ml 1X ONCE INJ 05/29/21 11:45 05/29/21 11:50 DC 05/29/21 11:22 Nitroglycerin (Nitroglycerin) 200 mcg 1X ONCE ICAR 05/29/21 12:00 05/29/21 12:01 DC 05/29/21 12:00 Clopidogrel Bisulfate (Plavix) 600 mg 1X ONCE PO 05/29/21 12:00 05/29/21 12:01 DC 05/29/21 12:11 Justifications for Admission Other Justification HERBER PENALOZA MD May 29, 2021 13:32
[2021-05-29] MEDS: INSULIN LISPRO 300 UNITS/3 ML VIAL. SQ SCH (17:31)
[2021-05-29] MEDS ORDERED: hydrALAZINE 20 MG/ML VIAL. IVP PRN (18:00)
[2021-05-29] MEDS: BUTALB/APAP/CAFEIN 50/325/40MG TABLET. PO PRN (18:11)
--- NOTE | 2021-05-29 19:13 | NUR ---
Patient hypertensive & complaining of headache, Dr. Kevin hayward, orders received & medication administered. Will continue to monitor.
[2021-05-29] MEDS: ATORVASTATIN CALCIUM 40 MG TABLET. PO SCH (21:44)
[2021-05-29] MEDS: INSULIN GLARGINE SYRINGE. SQ SCH (21:51)
[2021-05-29] MEDS: MORPHINE SULFATE 2 MG/ML INJ. IVP PRN (22:00)
[2021-05-30 03:00] VITALS: BP 163/94
[2021-05-30 07:00] VITALS: BP 176/92
[2021-05-30] MEDS ORDERED: PERFLUTREN PROTEIN-A MICROSPHR 0.22 MG/ML 3 ML VIAL. IV ONE ×2 (07:15→07:30)
[2021-05-30] MEDS: ASPIRIN ENTERIC COATED 81 MG TABLET.DR. PO SCH (08:30)
[2021-05-30] MEDS: CLOPIDOGREL BISULFATE 75 MG TABLET PO SCH (08:31)
[2021-05-30] MEDS: MORPHINE SULFATE 2 MG/ML INJ. IVP PRN ×3 (08:31→15:23)
[2021-05-30] MEDS: INSULIN LISPRO 300 UNITS/3 ML VIAL. SQ SCH ×3 (08:32→16:31)
[2021-05-30 09:22] LABS: CALCIUM 8.8 mg/dL (8.5-10.1); CREATININE 1.6 mg/dL (0.7-1.3); GFR 51.4; POTASSIUM 4.2 mmol/L (3.5-5.1)
[2021-05-30 11:00] VITALS: BP 160/80
[2021-05-30] MEDS ORDERED: PROCHLORPERAZINE 10 MG/2 ML VIAL. IV ONE (11:15)
--- NOTE | 2021-05-30 11:18 | PDOC ---
[employer] PROGRESS NOTE Date of Service DOS: DATE: 05/30/21 TIME: 11:15 Chief Complaint Chief Complaint Angina - with CAD s/p LAD stent x2. Dual antiplatelet, f/u cardiac recs HTN HLD CKD - monitor renal function s/p splenectomy DM2 - basal bolus plus insulin Vertigo - likely right sided peripheral etiology from BPPV vs labyrinthitis History of Present Illness History of Present Illness Mr Torres is a 76 yo male with PMHx HTN, HLD, CKD, s/p splenectomy, and DM2 who came to ED on 05/28/21 c/o nausea and vomiting. He also noted dyspnea on exertion. Had associated dizziness and vertigo as well. He is unvaccinated for covid-19. He does not take ASA. Found with elevated troponin. Placed on heparin gtt. consults: Cardiology 05/29: To cardiac cath with 2 JAMES to LAD. Dyspnea improved somewhat. Glucose in 200s. Nausea controlled with zofran. 05/30: Vomiting resolved dyspnea improved still with a little bit of vertigo. Glucose still a little up. Complaining of bilateral frontal headache not improved with Fioricet. He is asking for morphine. Offered Compazine he is willing to try this. Based on therapy evaluation needs SNF on d/c. Vitals/I&O Vitals/I&O: Vital Signs Date Time Temp Pulse Resp B/P (MAP) Pulse Ox O2 Delivery O2 Flow Rate FiO2 05/30/21 09:01 95 Room Air 2.0 05/30/21 08:31 99 176/92 05/30/21 07:00 99.5 16 99.5 I & O 05/29/21 05/29/21 05/30/21 15:00 23:00 07:00 Intake Total 0 ml 200 ml 200 ml Output Total 250 ml 550 ml 600 ml Balance -250 ml -350 ml -400 ml Physical Exam General: Alert, Oriented X3, Cooperative, No acute distress Heart: Regular rate (SR), Normal S1, Normal S2, No murmurs Abdomen: Soft, No tenderness Extremities: No cyanosis, Other (1-2+ bilateral LE pitting edema, diminished pedal pulses) Skin: No breakdown, No significant lesion, Other (healed second toe wound from 3 weeks ago) Labs Labs: Laboratory Tests Test 05/29/21 16:10 05/29/21 19:44 05/30/21 08:27 05/30/21 08:55 Glucose (Fingerstick) 323 mg/dL (70-99) 250 mg/dL (70-99) 266 mg/dL (70-99) Sodium Level 140 mmol/L (136-145) Potassium Level 4.2 mmol/L (3.5-5.1) Chloride Level 105 mmol/L (98-107) Carbon Dioxide Level 28 mmol/L (21-32) Anion Gap 7 (6-14) Blood Urea Nitrogen 25 mg/dL (8-26) Creatinine 1.6 mg/dL (0.7-1.3) Estimated GFR (Cockcroft-Gault) 51.4 Glucose Level 244 mg/dL (70-99) Calcium Level 8.8 mg/dL (8.5-10.1) Assessment and Plan Assessmemt and Plan Problems Medical Problems: (1) Nausea & vomiting Status: Acute (2) NSTEMI (non-ST elevated myocardial infarction) Status: Acute Comment Review of Relevant I have reviewed the following items ravinder (where applicable) has been applied. Medications: Current Medications Medications (Trade) Dose Ordered Sig/Jossie Route PRN Reason Start Time Stop Time Status Last Admin Dose Admin Aspirin (Ecotrin) 81 mg DAILYWBKFT PO 05/29/21 12:00 05/30/21 08:30 Nitroglycerin (Nitroglycerin) 200 mcg 1X ONCE IART 05/29/21 11:45 05/29/21 11:50 DC 05/29/21 11:22 Verapamil HCl (Verapamil) 2.5 mg 1X ONCE IART 05/29/21 11:45 05/29/21 11:50 DC 05/29/21 11:22 Heparin Sodium (Porcine) (Heparin Sodium) 2,500 unit 1X ONCE IART 05/29/21 11:45 05/29/21 11:50 DC 05/29/21 11:23 Heparin Sodium/ Sodium Chloride (HEPARIN for ARTERIAL LINE FLUSH) 1,000 unit 1X ONCE IART 05/29/21 11:45 05/29/21 11:50 DC 05/29/21 11:45 Midazolam HCl (Versed) 1 mg 1X ONCE IV 05/29/21 11:45 05/29/21 11:50 DC 05/29/21 11:23 Fentanyl Citrate (Fentanyl 2ml Vial) 50 mcg 1X ONCE IV 05/29/21 11:45 05/29/21 11:50 DC 05/29/21 11:23 Iodixanol (Visipaque 320) 100 ml 1X ONCE IART 05/29/21 11:45 05/29/21 11:50 DC 05/29/21 11:45 Heparin Sodium (Porcine) (Heparin Sodium) 4,000 unit 1X ONCE IV 05/29/21 11:45 05/29/21 11:50 DC 05/29/21 11:36 Tirofiban/Sodium Chloride 250 ml @ 0 mls/hr CONT PRN IV PER PROTOCOL 05/29/21 11:45 05/29/21 11:37 Lidocaine HCl (Xylocaine-Mpf 1% 2ml Vial) 2 ml 1X ONCE INJ 05/29/21 11:45 05/29/21 11:50 DC 05/29/21 11:22 Nitroglycerin (Nitroglycerin) 200 mcg 1X ONCE ICAR 05/29/21 12:00 05/29/21 12:01 DC 05/29/21 12:00 Clopidogrel Bisulfate (Plavix) 600 mg 1X ONCE PO 05/29/21 12:00 05/29/21 12:01 DC 05/29/21 12:11 Atorvastatin Calcium (Lipitor) 40 mg HS PO 05/29/21 21:00 05/29/21 21:44 Insulin Glargine (Lantus Syringe) 20 unit QHS SQ 05/29/21 21:00 05/29/21 21:51 Insulin Human Lispro (HumaLOG) 0-9 UNITS TIDWMEALS SQ 05/29/21 17:00 05/30/21 08:32 Clopidogrel Bisulfate (Plavix) 75 mg DAILYWBKFT PO 05/30/21 08:00 05/30/21 08:31 Acetaminophen/ Butalbital/ Caffeine (Fioricet) 1 tab PRN Q6HRS PRN PO MIGRAINE HEADACHE 05/29/21 18:00 05/29/21 18:11 Amlodipine Besylate (Norvasc) 2.5 mg DAILY PO 05/29/21 18:00 05/30/21 08:31 Justifications for Admission Other Justification HERBER PENALOZA MD May 30, 2021 11:18
--- NOTE | 2021-05-30 11:22 | PDOC ---
LUI MEDEIROS COLLECTIONS AND ARCHIVES DIRECTOR 05/30/21 1122: CARDIO Progress Notes Date and Time Date of Service 05/30/21 Time of Evaluation 1115 Subjective Subjective: No Chest Pain, No shortness of breath, No Palpitations, Other (had nausea/vomiting) Vitals Vitals Vital Signs Date Time Temp Pulse Resp B/P (MAP) Pulse Ox O2 Delivery O2 Flow Rate FiO2 05/30/21 09:01 95 Room Air 2.0 05/30/21 08:31 99 176/92 05/30/21 07:00 99.5 16 99.5 Weight Weight [ ] Input and Output Intake and Output Intake and Output 05/30/21 07:00 Intake Total 400 ml Output Total 1400 ml Balance -1000 ml Intake Oral 400 ml Output Urine Total 1400 ml Laboratory Labs Laboratory Tests Test 05/29/21 16:10 05/29/21 19:44 05/30/21 08:27 05/30/21 08:55 Glucose (Fingerstick) 323 mg/dL (70-99) 250 mg/dL (70-99) 266 mg/dL (70-99) Sodium Level 140 mmol/L (136-145) Potassium Level 4.2 mmol/L (3.5-5.1) Chloride Level 105 mmol/L (98-107) Carbon Dioxide Level 28 mmol/L (21-32) Anion Gap 7 (6-14) Blood Urea Nitrogen 25 mg/dL (8-26) Creatinine 1.6 mg/dL (0.7-1.3) Estimated GFR (Cockcroft-Gault) 51.4 Glucose Level 244 mg/dL (70-99) Calcium Level 8.8 mg/dL (8.5-10.1) Physical Exam HEENT: Neck Supple W Full Motion Chest: Symmetric LUNGS: Clear to Auscultation Heart: RRR Abdomen: Soft N/T Extremities: No Edema, Other (right radial arteriotomy site soft, clean, and dry. Neurovascular status intact ) Neurology: alert, oriented, follow commands Assessment Assessment 1. NSTEMI 2. CAD; [facility] with one-vesse disease involving the mid to distal LAD. s/p successful PCI/JAMES to the medi and distal LAD 3. DM2 4. HTN: labile 5. HLP 6. 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 Acute diastolic heart failure, LVEDP 20 mmHg per [facility]. Appears compensated 9. Nausea/vomiting; as per PCP Recommendations Echo pending Secondary prevention measures ASA/Plavix, high-dose statin therapy Add BB Allergy to BELEN Cardiac rehab referral Supportive care Patient will followup through [place] system Justicifation of Admission Dx: Justifications for Admission: Justification of Admission Dx: Yes Comments: NSTEMI CAD s/p PCI/JAMES Acute on chronic diastolic CHF WESLEY CHRISTIANSON MD 05/30/21 2203: CARDIO Progress Notes Plan Plan Patient seen and examined. Agree with above nurse practitioner note. Echocardiogram reviewed and the patient has severe LV dysfunction with possible apical LV thrombus In light of this we will initiate Eliquis therapy and change his medications as follows: We will change him to metoprolol XL, initiate hydralazine and Imdur and Jardiance therapies. Defer spironolactone at this time given his renal insufficiency. Consider initiation on an outpatient basis He will continue aspirin, Plavix and Eliquis for 1 week at which point his aspirin will be discontinued and he will continue Eliquis and Plavix for at least 1 year. LUI MEDEIROS APRN May 30, 2021 11:22 WESLEY CHRISTIANSON MD May 30, 2021 22:03
[2021-05-30] MEDS: BUTALB/APAP/CAFEIN 50/325/40MG TABLET. PO PRN (11:26)
--- NOTE | 2021-05-30 12:51 | NUR ---
SS following up with discharge planning. SS reviewed pt chart and discussed with pt RN. Pt is currently on room air. Cardiology following. Pt had heart cath with stents on 05/29/2021. PT/OT ordered and recommended group home unit. SS met with pt and discussed discharge planning and group home unit. Pt having difficulties staying awake but did state that he wanted to try home healthcare. SS will revisit with pt when more awake. SS will continue to follow for discharge planning.
[2021-05-30 15:00] VITALS: BP 180/94
[2021-05-30] MEDS: traMADol 50 MG TABLET PO PRN (15:38)
--- NOTE | 2021-05-30 18:02 | CARD ---
MR#: [id number] Date of Study: 05/30/2021 Ordering Physician: BRENDEN DOUGHERTY, Referring Physician: BRNEDEN DOUGHERTY Tech: Elisabet Gaytan [facility] APPROVED REPORT EXAM: Two-dimensional and M-mode echocardiogram with Doppler and color Doppler. Other Information Quality : AverageHR: 98bpm Rhythm : Atrial Fibrillation INDICATION Atrial Fibrillation RISK FACTORS Hypertension Hyperlipidemia 2D DIMENSIONS RVDd3.5 (2.9-3.5cm)Left Atrium(2D)5.4 (1.6-4.0cm) IVSd1.4 (0.7-1.1cm)Aortic Root(2D)4.0 (2.0-3.7cm) LVDd4.7 (3.9-5.9cm)LVOT Diameter2.2 (1.8-2.4cm) PWd1.4 (0.7-1.1cm)LVDs3.6 (2.5-4.0cm) FS (%) 24.2 %SV49.5 ml Aortic Valve AoV Peak Maciel.104.0cm/sAoV VTI18.9cm AO Peak GR.4.3mmHgLVOT Peak Maciel.85.6cm/s AO Mean GR.2mmHgAVA (VMAX)3.21cm2 Mitral Valve MV E Orhloyho264.9cm/s Pulmonary Valve PV Peak Lrgqdexo69.8cm/s LEFT VENTRICLE The Left Ventricle is borderline dilated. There is mild concentric left ventricular hypertrophy. Left ventricular systolic function is severely impaired. LV ejection fraction of 20 to 25%. There is glob al hypokinesis with more severe apical akinesis. There is a thrombus in the apex. There does appear t o be an apical thrombus. RIGHT VENTRICLE The right ventricle is normal size. There is normal right ventricular wall thickness. Systolic functi on is mildly reduced. ATRIA The left atrium size is normal. The right atrium size is normal. The interatrial septum is intact wit h no evidence for an atrial septal defect or patent foramen ovale as noted on 2-D or Doppler imaging. AORTIC VALVE The aortic valve is normal in structure and function. Doppler and Color Flow revealed no significant aortic regurgitation. There is no significant aortic valvular stenosis. MITRAL VALVE The mitral valve is normal in structure and function. There is no evidence of mitral valve prolapse. There is no mitral valve stenosis. Doppler and Color-flow revealed trace to mild mitral regurgitation . TRICUSPID VALVE The tricuspid valve is normal in structure and function. Doppler and Color Flow revealed trace tricus pid valve regurgitation. There is no tricuspid valve stenosis. PULMONIC VALVE The pulmonary valve is normal in structure and function. Doppler and Color Flow revealed no pulmonic valvular regurgitation. GREAT VESSELS The aortic root is mildly enlarged. The ascending aorta is mildly dilated. The IVC is normal in size and collapses <50% with inspiration. PERICARDIAL EFFUSION There is no evidence of significant pericardial effusion. Critical Notification Critical Value: Yes <Conclusion> The Left Ventricle is borderline dilated. Left ventricular systolic function is severely impaired. LV ejection fraction of 20 to 25%. There is global hypokinesis with more severe apical akinesis. There is a thrombus in the apex. There is mild concentric left ventricular hypertrophy. Doppler and Color Flow revealed no significant aortic regurgitation. There is no significant aortic valvular stenosis. Doppler and Color-flow revealed trace to mild mitral regurgitation. Doppler and Color Flow revealed trace tricuspid valve regurgitation. The aortic root is mildly enlarged. Signed by : Cecilio Murphy MD Electronically Approved : 05/30/2021 18:01:16
[2021-05-30 19:00] VITALS: BP 154/94
[2021-05-30] MEDS: ATORVASTATIN CALCIUM 40 MG TABLET. PO SCH (20:49)
[2021-05-30] MEDS ORDERED: METOPROLOL TART IMMED RELEASE 25 MG TABLET. PO SCH (21:00)
[2021-05-30] MEDS: INSULIN GLARGINE SYRINGE. SQ SCH (21:13)
[2021-05-30] MEDS ORDERED: ANTI-COAG MONITOR BY PHARMACY. MC PRN (22:15)
[2021-05-30 22:43] VITALS: BP 151/90
[2021-05-30] MEDS: APIXABAN 5 MG TABLET. PO SCH (23:18)
[2021-05-31] VITALS (7 sets, daily range): BP systolic 146–169; BP diastolic 80–94
[2021-05-31] MEDS: traMADol 50 MG TABLET PO PRN ×3 (03:22→22:06)
[2021-05-31 06:53] LABS: HEMATOCRIT 45.9 % (39.0-53.0); HEMOGLOBIN 14.5 g/dL (13.0-17.5); RED BLOOD COUNT 5.49 x10^6/uL (4.30-5.70); RED CELL DISTRIBUTION WIDTH 14.3 % (11.5-14.5); WHITE BLOOD COUNT 7.7 x10^3/uL (4.0-11.0)
[2021-05-31] MEDS: INSULIN LISPRO 300 UNITS/3 ML VIAL. SQ SCH ×3 (08:00→16:36)
[2021-05-31] MEDS: ASPIRIN ENTERIC COATED 81 MG TABLET.DR. PO SCH (08:38)
[2021-05-31] MEDS: EMPAGLIFLOZIN 10 MG TABLET. PO SCH (08:39)
[2021-05-31] MEDS: ISOSORBIDE MONONITRATE ER 30 MG TAB.ER.24H PO SCH (08:39)
[2021-05-31] MEDS: CLOPIDOGREL BISULFATE 75 MG TABLET PO SCH (08:39)
[2021-05-31] MEDS: APIXABAN 5 MG TABLET. PO SCH ×2 (08:40→21:51)
[2021-05-31] MEDS: METOPROLOL SUCC 24HR ER 50 MG TAB.ER.24H. PO SCH (08:41)
--- NOTE | 2021-05-31 08:54 | PDOC ---
LUI MEDEIROS [employer]PENTER [employer] 05/31/21 0854: CARDIO Progress Notes Date and Time Date of Service 05/31/21 Time of Evaluation 1210 Subjective Subjective: No Chest Pain, No shortness of breath, No Palpitations Vitals Vitals Vital Signs Date Time Temp Pulse Resp B/P (MAP) Pulse Ox O2 Delivery O2 Flow Rate FiO2 05/31/21 08:41 94 169/94 05/31/21 08:39 99 Room Air 2.0 05/31/21 02:36 98.4 19 98.4 Weight Weight [ ] Input and Output Intake and Output Intake and Output 05/31/21 07:00 Intake Total 900 ml Output Total 400 ml Balance 500 ml Intake Oral 900 ml Output Urine Total 400 ml Laboratory Labs Laboratory Tests Test 05/30/21 08:55 05/30/21 11:23 05/30/21 16:28 05/30/21 20:00 Sodium Level 140 mmol/L (136-145) Potassium Level 4.2 mmol/L (3.5-5.1) Chloride Level 105 mmol/L (98-107) Carbon Dioxide Level 28 mmol/L (21-32) Anion Gap 7 (6-14) Blood Urea Nitrogen 25 mg/dL (8-26) Creatinine 1.6 mg/dL (0.7-1.3) Estimated GFR (Cockcroft-Gault) 51.4 Glucose Level 244 mg/dL (70-99) Calcium Level 8.8 mg/dL (8.5-10.1) Glucose (Fingerstick) 205 mg/dL (70-99) 132 mg/dL (70-99) 132 mg/dL (70-99) Test 05/31/21 06:05 05/31/21 07:55 White Blood Count 7.7 x10^3/uL (4.0-11.0) Red Blood Count 5.49 x10^6/uL (4.30-5.70) Hemoglobin 14.5 g/dL (13.0-17.5) Hematocrit 45.9 % (39.0-53.0) Mean Corpuscular Volume 84 fL (79-100) Mean Corpuscular Hemoglobin 26 pg (25-35) Mean Corpuscular Hemoglobin Concent 32 g/dL (31-37) Red Cell Distribution Width 14.3 % (11.5-14.5) Platelet Count 201 x10^3/uL (140-400) Glucose (Fingerstick) 97 mg/dL (70-99) Physical Exam HEENT: Neck Supple W Full Motion Chest: Symmetric LUNGS: Clear to Auscultation Heart: RRR Abdomen: Soft N/T Extremities: No Edema, Other (right radial arteriotomy site soft, clean, and dry. Neurovascular status intact ) Neurology: alert, oriented, follow commands, other (flat affect ) Assessment Assessment 1. NSTEMI 2. CAD; [facility] with one-vessel disease involving the mid to distal LAD. s/p successful PCI/JAMES to the medi and distal LAD 3. DM2 4. HTN: labile 5. HLP 6. 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 Acute systolic heart failure, LVEDP 20 mmHg per [facility]. Appears compensated 9. Ischemic cardiomyopathy; Echo with LVEF 25%. Possible apical thrombus noted 10. Nausea/vomiting; resolved Recommendations Secondary prevention measures ASA, Plavix, and Eliquis x1 week and then can discontinue ASA therapy and c ontinue with Eliquis and Plavix for at least 1 year GDMT with Toprol, hydralazine, Imdur, and Jardiance. Will defer spironolactone at this time given his renal insufficiency. Consider initiation on an outpatient basis Allergy to BELEN Cardiac rehab referral Supportive care Justicifation of Admission Dx: Justifications for Admission: Justification of Admission Dx: Yes WESLEY CHRISTIANSON MD 05/31/21 9838: CARDIO Progress Notes Plan Plan Patient seen and examined. Agree with above nurse practitioner note. No acute events overnight. Continue current medical therapy. Discussed with primary care physician. We will need to involve family for goals of care and to inform them of his current status. 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 LUI MEDEIROS APRN May 31, 2021 08:54 WESLEY CHRISTIANSON MD May 31, 2021 16:58
--- NOTE | 2021-05-31 10:15 | NUR ---
Wound Care Wound Type/Assessment: patient seen per wound care consult. see wound assessment. patient has DFU to the left foot, the left great toe wound is a dry callous appears closed at this time, the area was cleaned and Betadine applied to the area. patient also has a left 2nd toe DFU that is dry slough and dark red, the periwound/2nd toe is darker in color the wound was cleaned and redressed with Betadine and a Telfa dressing. Treatment Recommendations/Plan: Recommendations of the left 2nd toe- cleanse the area then apply Betadine with a Telfa dressing, change every 2-3 days. 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 Discharge Recommendations for dressings: Recommend patient f/u with wound care. No other wounds noted at this time. Notified STEFANIE Jensen about the POC.
--- NOTE | 2021-05-31 10:31 | NUR ---
SS following up with discharge planning. SS reviewed pt chart and discussed with pt RN. Pt is currently requiring oxygen at two liters nasal canula. COVID19 negative. Pt had heart cath on 05/29/2021. PT/OT recommended halfway unit. SS met with pt this morning and discussed discharge planning and halfway unit. Pt more awake today. Pt agreeable to referrals to [facility], ; fax [phone], [facility], ; fax [phone], and [facility], ; fax [phone]. Referrals faxed as requested. Pt is unvaccinated. [facility] not accepting unvaccinated pt's at this time. Currently awaiting acceptance decisions from other facilities and will proceed accordingly with discharge planning. Addendum: 05/31/21 at 1212 by TEENA SENA Pt accepted at [facility] pending insurance approval. Addendum: 05/31/21 at 1309 by TEENA SENA Discharge orders received for halfway unit and sent to [facility]. Currently awaiting insurance authorization from [facility].
--- NOTE | 2021-05-31 10:50 | EKG ---
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
--- NOTE | 2021-05-31 12:38 | PDOC ---
[facility] PROGRESS NOTE Date of Service DOS: DATE: 05/31/21 TIME: 12:36 Chief Complaint Chief Complaint Angina - with CAD s/p LAD stent x2. Dual antiplatelet, f/u cardiac recs Cardiomyopathy - ischemic with EF 25%. Imdur + hydralazine due to renal insufficiency cannot take BELEN/ARB. Jardiance, ASA, Toprol XL, statin. LV thrombus - eliquis therapy initiated HTN HLD CKD - monitor renal function s/p splenectomy DM2 - basal bolus plus insulin Vertigo - likely right sided peripheral etiology from BPPV vs labyrinthitis Headache - likely tension headache, improving with compazine, NSAIDs History of Present Illness History of Present Illness Mr Torres is a 76 yo male with PMHx HTN, HLD, CKD, s/p splenectomy, and DM2 who came to ED on 05/28/21 c/o nausea and vomiting. He also noted dyspnea on exertion. Had associated dizziness and vertigo as well. He is unvaccinated for covid-19. He does not take ASA. Found with elevated troponin. Placed on heparin gtt. consults: Cardiology 05/29: To cardiac cath with 2 JAMES to LAD. Dyspnea improved somewhat. Glucose in 200s. Nausea controlled with zofran. 05/30: Vomiting resolved dyspnea improved still with a little bit of vertigo. Glucose still a little up. Complaining of bilateral frontal headache not improved with Fioricet. He is asking for morphine. Offered Compazine he is willing to try this. Based on therapy evaluation needs SNF on d/c. 05/31: Still very weak had some nausea this morning but it abated without medication still with little dyspnea no chest pain. Headache is little im proved. Overall he thinks he is a little depressed given his recent cardiac stenting. He is amenable to going to SNF on discharge. On echocardiogram with severe LV dysfunction EF 25% with possible apical LV thrombus placed on Eliquis and Toprol-XL as well as hydralazine Imdur and Jardiance. We will continue aspirin Plavix and Eliquis for 1 week and then changed to just Eliquis and Plavix for 12 months. Discussed with cardiology will need cardiac rehabilitation through the [facility]. Consults: Cardiology Echo: The Left Ventricle is borderline dilated. Left ventricular systolic function is severely impaired. LV ejection fraction estimated at 25%. There is global hypokinesis with more severe apical akinesis. There is a thrombus in the apex. There is mild concentric left ventricular hypertrophy. Doppler and Color Flow revealed no significant aortic regurgitation. There is no significant aortic valvular stenosis. Doppler and Color-flow revealed trace to mild mitral regurgitation. Doppler and Color Flow revealed trace tricuspid valve regurgitation. The aortic root is mildly enlarged. Vitals/I&O Vitals/I&O: Vital Signs Date Time Temp Pulse Resp B/P (MAP) Pulse Ox O2 Delivery O2 Flow Rate FiO2 05/31/21 11:00 98.0 88 20 151/91 (111) 96 Nasal Cannula 2.0 98.0 I & O 05/30/21 05/30/21 05/31/21 15:00 23:00 07:00 Intake Total 300 ml 360 ml 240 ml Output Total 300 ml 100 ml Balance 300 ml 60 ml 140 ml Physical Exam General: Alert, Oriented X3, Cooperative, No acute distress Heart: Regular rate (SR), Normal S1, Normal S2, No murmurs Abdomen: Soft, No tenderness Extremities: No cyanosis, Other (1-2+ bilateral LE pitting edema, diminished pedal pulses) Skin: No breakdown, No significant lesion, Other (healed second toe wound from 3 weeks ago) Labs Labs: Laboratory Tests Test 05/30/21 16:28 05/30/21 20:00 05/31/21 06:05 05/31/21 07:55 Glucose (Fingerstick) 132 mg/dL (70-99) 132 mg/dL (70-99) 97 mg/dL (70-99) White Blood Count 7.7 x10^3/uL (4.0-11.0) Red Blood Count 5.49 x10^6/uL (4.30-5.70) Hemoglobin 14.5 g/dL (13.0-17.5) Hematocrit 45.9 % (39.0-53.0) Mean Corpuscular Volume 84 fL (79-100) Mean Corpuscular Hemoglobin 26 pg (25-35) Mean Corpuscular Hemoglobin Concent 32 g/dL (31-37) Red Cell Distribution Width 14.3 % (11.5-14.5) Platelet Count 201 x10^3/uL (140-400) Test 05/31/21 11:57 Glucose (Fingerstick) 93 mg/dL (70-99) Assessment and Plan Assessmemt and Plan Problems Medical Problems: (1) Nausea & vomiting Status: Acute (2) NSTEMI (non-ST elevated myocardial infarction) Status: Acute Comment Review of Relevant I have reviewed the following items ravinder (where applicable) has been applied. Medications: Current Medications Medications (Trade) Dose Ordered Sig/Jossie Route PRN Reason Start Time Stop Time Status Last Admin Dose Admin Metoprolol Tartrate (Lopressor) 25 mg BID PO 05/30/21 21:00 05/30/21 22:02 DC 05/30/21 20:50 Tramadol HCl (Ultram) 50 mg PRN Q6HRS PRN PO MODERATE - SEVERE PAIN 05/30/21 15:30 05/31/21 08:39 Hydralazine HCl (Apresoline) 50 mg BID PO 05/31/21 09:00 05/31/21 08:41 Isosorbide Mononitrate (Imdur) 30 mg DAILY PO 05/31/21 09:00 05/31/21 08:39 Metoprolol Succinate (Toprol Xl) 50 mg DAILY PO 05/31/21 09:00 05/31/21 08:41 Empaglifozin (Jardiance) 10 mg DAILY PO 05/31/21 09:00 05/31/21 08:39 Apixaban (Eliquis) 5 mg BID PO 05/30/21 22:30 05/31/21 08:40 Info (Anti-Coagulation Monitoring By Pharmacy) 1 each PRN DAILY PRN MC PER PROTOCOL 05/30/21 22:15 05/31/21 02:26 Justifications for Admission Other Justification HERBER PENALOZA MD May 31, 2021 12:38
[2021-05-31] MEDS ORDERED: ISOS30TA68 PO (12:51)
[2021-05-31] MEDS ORDERED: EMPA10TA3 PO (12:51)
[2021-05-31] MEDS ORDERED: METO50TA4 PO (12:51)
[2021-05-31] MEDS ORDERED: ASPI-886 PO (12:51)
[2021-05-31] MEDS ORDERED: INSU100I53 SQ (12:51)
[2021-05-31] MEDS ORDERED: INSU100I13 SQ (12:51)
[2021-05-31] MEDS ORDERED: CLOP75TA PO (12:51)
[2021-05-31] MEDS ORDERED: AMLO-186 PO (12:51)
[2021-05-31] MEDS ORDERED: APIX5TAB PO (12:51)
[2021-05-31] MEDS ORDERED: HYDR-2869 PO (12:51)
[2021-05-31] MEDS ORDERED: FURO-68 PO (12:51)
--- NOTE | 2021-05-31 12:52 | SNU/HH DC ---
DISCHARGE ORDERS DISCHARGE INFORMATION: DISCHARGE DATE: May 31, 2021 FINAL DIAGNOSIS Problems Medical Problems: (1) Nausea & vomiting Status: Acute (2) NSTEMI (non-ST elevated myocardial infarction) Status: Acute CONDITION ON DISCHARGE: Stable CODE STATUS: Code Status: Full JAIL: SNF STAY <30 DAYS: Yes POST DISCHARGE ORDERS: ACTIVITY ORDERS: Resume previous activity WEIGHT BEARING STATUS: Full weight bearing DIET AFTER DISCHARGE: Cardiac WOUND/INCISION CARE: Ice to area for comfort CHECKS AFTER DISCHARGE: CHECKS AFTER DISCHARGE: Check blood press - daily, Check blood sugar, ac/hs, Check your Temp as needed, Weigh Yourself Daily FOLLOW-UP: LAB ORDERS FOR FOLLOW-UP: MARYA, weekly Additional Instructions: Call to follow up with cardiology [address] [facility], [address] [place] [address] Echocardiogram with severe LV dysfunction EF 25% with possible apical LV thrombus placed on Eliquis and Toprol-XL as well as hydralazine Imdur and Jardiance. Continue aspirin Plavix and Eliquis for 1 week and then changed to just Eliquis and Plavix for 12 months. [facility] TREATMENT/EQUIPMENT ORDERS: Physical Therapy For: Evalulation/Treatment Occupational Therapy For: Evaluation/Treatment DISCHARGE MEDICATIONS: Home Meds Active Scripts Insulin Aspart (Insulin Aspart Flexpen) 100 Unit/1 Ml Insuln.pen, 0-9 UNIT SQ TIDACHC for DM2 for 30 Days, #3 EACH 11 Refills Prov:HERBER PENALOZA MD 05/31/21 Empagliflozin (Jardiance) 10 Mg Tablet, 10 MG PO DAILY for CHF/DM2 for 30 Days, #30 TAB 11 Refills Prov:HERBER PENALOZA MD 05/31/21 Amlodipine Besylate (AMLODIPINE BESYLATE) 5 Mg Tablet, 2.5 MG PO DAILY for HTN for 30 Days, #15 TAB 11 Refills Prov:HERBER PENALOZA MD 05/31/21 Aspirin (ASPIRIN EC) 81 Mg Tablet.dr, 81 MG PO DAILYWBKFT for CAD for 7 Days, #7 TAB.SR 0 Refills Prov:HERBER PENALOZA MD 05/31/21 Metoprolol Succinate (Toprol XL) 50 Mg Tab.er.24h, 50 MG PO DAILY for CHF for 30 Days, #30 TAB.SR 11 Refills Prov:HERBER PENALOZA MD 05/31/21 Isosorbide Mononitrate (ISOSORBIDE MONONITRATE ER) 30 Mg Tab.er.24h, 30 MG PO DAILY for CHF for 30 Days, #30 TAB.SR 11 Refills Prov:HERBER PENALOZA MD 05/31/21 Hydralazine Hcl (HYDRALAZINE HCL) 50 Mg Tablet, 50 MG PO BID for HTN for 30 Days, #60 TAB 11 Refills Prov:HERBER PENALOZA MD 05/31/21 Clopidogrel Bisulfate (CLOPIDOGREL) 75 Mg Tablet, 75 MG PO DAILYWBKFT for CAD for 30 Days, #30 TAB 11 Refills Prov:HERBER PENALOZA MD 05/31/21 Apixaban (ELIQUIS) 5 Mg Tablet, 5 MG PO BID for LV thrombus for 30 Days, #60 TAB 11 Refills Prov:HERBER PENALOZA MD 05/31/21 Insulin Glargine,Hum.rec.anlog (LANTUS SOLOSTAR) 100 Unit/1 Ml Insuln.pen, 12 UNIT SQ QHS for DIABETIC for 30 Days, #15 ML 5 Refills Prov:HERBER PENALOZA MD 05/31/21 Furosemide (LASIX) 40 Mg Tablet, 40 MG PO PRN DAILY PRN for weight gain for 30 Days, #30 TAB Prov:HERBER PENALOZA MD 05/31/21 Reported Medications Atorvastatin Calcium (ATORVASTATIN CALCIUM) 40 Mg Tablet, 40 MG PO HS for FOR CHOLESTEROL, #30 TAB 0 Refills 05/28/21 Acetaminophen (ACETAMINOPHEN) 500 Mg Tablet, 1 TAB PO PRN Q6HRS PRN for pain or fever for 15 Days, #60 TAB 0 Refills 05/28/21 Discontinued Reported Medications [Med With Meals] No Conflict Check, PO TIDBFRMEAL 05/28/21 [Blood Pressure Med] No Conflict Check, PO DAILY 05/28/21 Ibuprofen (IBUPROFEN) 600 Mg Tablet, 600 MG PO PRN Q6HRS PRN for INFLAMMATION, TAB 05/28/21 Discontinued Scripts Erythromycin Base (Erythromycin) 1 Gm Oint...g., 0.5 INCH OP QID for 5 Days, MISC Prov:CAMDEN OLIVERA DO 07/06/18 HERBER PENALOZA MD May 31, 2021 12:52
--- NOTE | 2021-05-31 12:55 | PDOC3 ---
Discharge Summary Visit Information Date of Admission: May 28, 2021 Date of Discharge: May 31, 2021 Admitting Diagnosis: NSTEMI Final Diagnosis Problems Medical Problems: (1) Nausea & vomiting Status: Acute (2) NSTEMI (non-ST elevated myocardial infarction) Status: Acute Brief Hospital Course Allergies Allergies Coded Allergies Type Severity Reaction Last Updated Verified lisinopril Adverse Reaction Intermediate coughing 07/06/18 Yes insulin regular Adverse Reaction Mild Nausea, cramps in legs 05/28/21 Yes Vital Signs Vital Signs Date Time Temp Pulse Resp B/P (MAP) Pulse Ox O2 Delivery O2 Flow Rate FiO2 05/31/21 11:00 98.0 88 20 151/91 (111) 96 Nasal Cannula 2.0 98.0 Lab Results Laboratory Tests Test 05/29/21 16:10 05/29/21 19:44 05/30/21 08:27 05/30/21 08:53 Glucose (Fingerstick) 323 mg/dL (70-99) 250 mg/dL (70-99) 266 mg/dL (70-99) Coronavirus (COVID-19)(PCR) Not detected (NOT DETECTD) Test 05/30/21 08:55 05/30/21 11:23 05/30/21 16:28 05/30/21 20:00 Sodium Level 140 mmol/L (136-145) Potassium Level 4.2 mmol/L (3.5-5.1) Chloride Level 105 mmol/L (98-107) Carbon Dioxide Level 28 mmol/L (21-32) Anion Gap 7 (6-14) Blood Urea Nitrogen 25 mg/dL (8-26) Creatinine 1.6 mg/dL (0.7-1.3) Estimated GFR (Cockcroft-Gault) 51.4 Glucose Level 244 mg/dL (70-99) Calcium Level 8.8 mg/dL (8.5-10.1) Glucose (Fingerstick) 205 mg/dL (70-99) 132 mg/dL (70-99) 132 mg/dL (70-99) Test 05/31/21 06:05 05/31/21 07:55 05/31/21 11:57 White Blood Count 7.7 x10^3/uL (4.0-11.0) Red Blood Count 5.49 x10^6/uL (4.30-5.70) Hemoglobin 14.5 g/dL (13.0-17.5) Hematocrit 45.9 % (39.0-53.0) Mean Corpuscular Volume 84 fL (79-100) Mean Corpuscular Hemoglobin 26 pg (25-35) Mean Corpuscular Hemoglobin Concent 32 g/dL (31-37) Red Cell Distribution Width 14.3 % (11.5-14.5) Platelet Count 201 x10^3/uL (140-400) Glucose (Fingerstick) 97 mg/dL (70-99) 93 mg/dL (70-99) Laboratory Tests Test 05/30/21 16:28 05/30/21 20:00 05/31/21 06:05 05/31/21 07:55 Glucose (Fingerstick) 132 mg/dL (70-99) 132 mg/dL (70-99) 97 mg/dL (70-99) White Blood Count 7.7 x10^3/uL (4.0-11.0) Red Blood Count 5.49 x10^6/uL (4.30-5.70) Hemoglobin 14.5 g/dL (13.0-17.5) Hematocrit 45.9 % (39.0-53.0) Mean Corpuscular Volume 84 fL (79-100) Mean Corpuscular Hemoglobin 26 pg (25-35) Mean Corpuscular Hemoglobin Concent 32 g/dL (31-37) Red Cell Distribution Width 14.3 % (11.5-14.5) Platelet Count 201 x10^3/uL (140-400) Test 05/31/21 11:57 Glucose (Fingerstick) 93 mg/dL (70-99) Brief Hospital Course Angina - with CAD s/p LAD stent x2. Dual antiplatelet, f/u cardiac recs Cardiomyopathy - ischemic with EF 25%. Imdur + hydralazine due to renal insufficiency cannot take BELEN/ARB. Jardiance, ASA, Toprol XL, statin. LV thrombus - eliquis therapy initiated HTN HLD CKD - monitor renal function s/p splenectomy DM2 - basal bolus plus insulin Vertigo - likely right sided peripheral etiology from BPPV vs labyrinthitis Headache - likely tension headache, improving with compazine, NSAIDs Mr Torres is a 76 yo male with PMHx HTN, HLD, CKD, s/p splenectomy, and DM2 who came to ED on 05/28/21 c/o nausea and vomiting. He also noted dyspnea on exertion. Had associated dizziness and vertigo as well. He is unvaccinated for covid-19. He does not take ASA. Found with elevated troponin. Placed on heparin gtt. consults: Cardiology 05/29: To cardiac cath with 2 JAMES to LAD. Dyspnea improved somewhat. Glucose in 200s. Nausea controlled with zofran. 05/30: Vomiting resolved dyspnea improved still with a little bit of vertigo. Glucose still a little up. Complaining of bilateral frontal headache not improved with Fioricet. He is asking for morphine. Offered Compazine he is willing to try this. Based on therapy evaluation needs SNF on d/c. 05/31: Still very weak had some nausea this morning but it abated without medication still with little dyspnea no chest pain. Headache is little improved. Overall he thinks he is a little depressed given his recent cardiac stenting. He is amenable to going to SNF on discharge. On echocardiogram with severe LV dysfunction EF 25% with possible apical LV thrombus placed on Eliquis and Toprol-XL as well as hydralazine Imdur and Jardiance. We will continue aspirin Plavix and Eliquis for 1 week and then changed to just Eliquis and Plavix for 12 months. Discussed with cardiology will need cardiac rehabilitation through the [facility]. Consults: Cardiology Echo: The Left Ventricle is borderline dilated. Left ventricular systolic function is severely impaired. LV ejection fraction estimated at 25%. There is global hypokinesis with more severe apical akinesis. There is a thrombus in the apex. There is mild concentric left ventricular hypertrophy. Doppler and Color Flow revealed no significant aortic regurgitation. There is no significant aortic valvular stenosis. Doppler and Color-flow revealed trace to mild mitral regurgitation. Doppler and Color Flow revealed trace tricuspid valve regurgitation. The aortic root is mildly enlarged. Discharge Information Condition at Discharge: Stable Follow Up: Weeks (1) Disposition/Orders: D/C to Another Facility Scheduled Amlodipine Besylate (Amlodipine Besylate) 5 Mg Tablet, 2.5 MG PO DAILY for HTN for 30 Days, #15 Ref 11 Prescribed by: HERBER PENALOZA MD on 05/31/21 1251 Apixaban (Eliquis) 5 Mg Tablet, 5 MG PO BID for LV thrombus for 30 Days, #60 Ref 11 Prescribed by: HERBER PENALOZA MD on 05/31/21 1251 Aspirin (Aspirin Ec) 81 Mg Tablet.dr, 81 MG PO DAILYWBKFT for CAD for 7 Days, #7 Ref 0 Prescribed by: HERBER PENALOZA MD on 05/31/21 1251 Atorvastatin Calcium (Atorvastatin Calcium) 40 Mg Tablet, 40 MG PO HS for FOR CHOLESTEROL, #30 Ref 0 (Reported) Entered as Reported by: Katia Cunha on 05/28/212251 Last Action: Continued on 05/29/21 1328 by HERBER PENALOZA MD Clopidogrel Bisulfate (Clopidogrel) 75 Mg Tablet, 75 MG PO DAILYWBKFT for CAD for 30 Days, #30 Ref 11 Prescribed by: HERBER PENALOZA MD on 05/31/21 1251 Empagliflozin (Jardiance) 10 Mg Tablet, 10 MG PO DAILY for CHF/DM2 for 30 Days, #30 Ref 11 Prescribed by: HERBER PENALOZA MD on 05/31/21 1251 Hydralazine Hcl (Hydralazine Hcl) 50 Mg Tablet, 50 MG PO BID for HTN for 30 Days, #60 Ref 11 Prescribed by: HERBER PENALOZA MD on 05/31/21 1251 Insulin Aspart (Insulin Aspart Flexpen) 100 Unit/1 Ml Insuln.pen, 0-9 UNIT SQ TIDACHC for DM2 for 30 Days, #3 Ref 11 Prescribed by: HERBER PENALOZA MD on 05/31/21 1251 Insulin Glargine,Hum.rec.anlog (Lantus Solostar) 100 Unit/1 Ml Insuln.pen, 12 UNIT SQ QHS for DIABETIC for 30 Days, #15 Ref 5 Prescribed by: HERBER PENALOZA MD on 05/31/21 1251 Isosorbide Mononitrate (Isosorbide Mononitrate Er) 30 Mg Tab.er.24h, 30 MG PO DAILY for CHF for 30 Days, #30 Ref 11 Prescribed by: HERBER PENALOZA MD on 05/31/21 1251 Metoprolol Succinate (Toprol XL) 50 Mg Tab.er.24h, 50 MG PO DAILY for CHF for 30 Days, #30 Ref 11 Prescribed by: HERBER PENALOZA MD on 05/31/21 1251 Scheduled PRN Acetaminophen (Acetaminophen) 500 Mg Tablet, 1 TAB PO PRN Q6HRS PRN for pain or fever for 15 Days, #60 Ref 0 (Reported) Entered as Reported by: Katia Cunha on 05/28/212249 Last Action: New Order on 05/28/212249 by Katia Cunha Furosemide (Lasix) 40 Mg Tablet, 40 MG PO PRN DAILY PRN for weight gain for 30 Days, #30 Prescribed by: HERBER PENALOZA MD on 05/31/21 1251 Discontinued Medications Erythromycin Base (Erythromycin) 1 Gm Oint...g., 0.5 INCH OP QID for 5 Days Prescribed by: CAMDEN OLIVERA D.O. on 07/06/18 0819 Ibuprofen (Ibuprofen) 600 Mg Tablet, 600 MG PO PRN Q6HRS PRN for INFLAMMATION, (Reported) Entered as Reported by: Katia Cunha on 05/28/212251 Last Action: New Order on 05/28/212251 by Katia Cunha [Blood Pressure Med] , Unknown Dose PO DAILY, (Reported) Entered as Reported by: Katia Cunha on 05/28/212301 Last Taken: UNKNOWN on Unknown Date & Time Last Action: New Order on 05/28/212301 by Katia Cunha [Med With Meals] , PO TIDBFRMEAL, (Reported) Entered as Reported by: Katia Cunha on 05/28/212302 Last Action: New Order on 05/28/212302 by Katia Cunha Justicifation of Admission Dx: Justifications for Admission: Justification of Admission Dx: Yes HERBER PENALOZA MD May 31, 2021 12:55
[2021-05-31] MEDS: ATORVASTATIN CALCIUM 40 MG TABLET. PO SCH (21:51)
[2021-05-31] MEDS: INSULIN GLARGINE SYRINGE. SQ SCH (21:52)
[2021-06-01 02:39] VITALS: BP 151/90
[2021-06-01 04:52] LABS: CALCIUM 8.5 mg/dL (8.5-10.1); CREATININE 1.5 mg/dL (0.7-1.3); GFR 55.4; POTASSIUM 3.6 mmol/L (3.5-5.1)
[2021-06-01 07:00] VITALS: BP 178/108
[2021-06-01] MEDS: INSULIN LISPRO 300 UNITS/3 ML VIAL. SQ SCH ×2 (07:35→12:00)
[2021-06-01] MEDS: ISOSORBIDE MONONITRATE ER 30 MG TAB.ER.24H PO SCH (08:46)
[2021-06-01] MEDS: ASPIRIN ENTERIC COATED 81 MG TABLET.DR. PO SCH (08:46)
[2021-06-01] MEDS: EMPAGLIFLOZIN 10 MG TABLET. PO SCH (08:46)
[2021-06-01] MEDS: CLOPIDOGREL BISULFATE 75 MG TABLET PO SCH (08:46)
[2021-06-01] MEDS: APIXABAN 5 MG TABLET. PO SCH (08:46)
[2021-06-01] MEDS: METOPROLOL SUCC 24HR ER 50 MG TAB.ER.24H. PO SCH (08:46)
--- NOTE | 2021-06-01 09:46 | PDOC ---
[employer] PROGRESS NOTE Date of Service DOS: DATE: 06/01/21 TIME: 09:30 Chief Complaint Chief Complaint Angina - with CAD s/p LAD stent x2. Dual antiplatelet, f/u cardiac recs Cardiomyopathy - ischemic with EF 25%. Imdur + hydralazine due to renal insufficiency cannot take BELEN/ARB. Jardiance, ASA, Toprol XL, statin. LV thrombus - eliquis therapy initiated HTN HLD CKD - monitor renal function s/p splenectomy DM2 - basal bolus plus insulin Vertigo - likely right sided peripheral etiology from BPPV vs labyrinthitis Headache - likely tension headache, improving with compazine, NSAIDs Left toe ulcers - will check for PAD. History of Present Illness History of Present Illness Mr Torres is a 76 yo male with PMHx HTN, HLD, CKD, s/p splenectomy, and DM2 who came to ED on 05/28/21 c/o nausea and vomiting. He also noted dyspnea on exertion. Had associated dizziness and vertigo as well. He is unvaccinated for covid-19. He does not take ASA. Found with elevated troponin. Placed on heparin gtt. consults: Cardiology 05/29: To cardiac cath with 2 JAMES to LAD. Dyspnea improved somewhat. Glucose in 200s. Nausea controlled with zofran. 05/30: Vomiting resolved dyspnea improved still with a little bit of vertigo. Glucose still a little up. Complaining of bilateral frontal headache not improved with Fioricet. He is asking for morphine. Offered Compazine he is willing to try this. Based on therapy evaluation needs SNF on d/c. 05/31: Still very weak had some nausea this morning but it abated without medication still with little dyspnea no chest pain. Headache is little improved. Overall he thinks he is a little depressed given his recent cardiac stenting. He is amenable to going to SNF on discharge. On echocardiogram with severe LV dysfunction EF 25% with possible apical LV thrombus placed on Eliquis and Toprol-XL as well as hydralazine Imdur and Jardiance. We will continue aspirin Plavix and Eliquis for 1 week and then changed to just Eliquis and Plavix for 12 months. Discussed with cardiology will need cardiac rehabilitation through the [facility]. 06/01: Still feeling weak. Nausea and headache improved. He is feeling depressed. He finally admits he does not have any friends or family here in town his brother lives in [place]. Discussed with wound care his left great toe and second toe ulcerations do not seem to be healing well will check arterial Doppler. Consults: Cardiology Echo: The Left Ventricle is borderline dilated. Left ventricular systolic function is severely impaired. LV ejection fraction estimated at 25%. There is global hypokinesis with more severe apical akinesis. There is a thrombus in the apex. There is mild concentric left ventricular hypertrophy. Doppler and Color Flow revealed no significant aortic regurgitation. There is no significant aortic valvular stenosis. Doppler and Color-flow revealed trace to mild mitral regurgitation. Doppler and Color Flow revealed trace tricuspid valve regurgitation. The aortic root is mildly enlarged. Vitals/I&O Vitals/I&O: Vital Signs Date Time Temp Pulse Resp B/P (MAP) Pulse Ox O2 Delivery O2 Flow Rate FiO2 06/01/21 08:47 103 178/108 06/01/21 07:39 Room Air 06/01/21 07:00 99.0 22 97 99.0 05/31/21 19:00 2.0 I & O 05/31/21 05/31/21 06/01/21 15:00 23:00 07:00 Intake Total 240 ml 180 ml 800 ml Output Total 100 ml 550 ml 450 ml Balance 140 ml -370 ml 350 ml Physical Exam General: Alert, Oriented X3, Cooperative, No acute distress Heart: Regular rate (SR), Normal S1, Normal S2, No murmurs Abdomen: Soft, No tenderness Extremities: No cyanosis, Other (1-2+ bilateral LE pitting edema, diminished pedal pulses) Skin: No breakdown, No significant lesion, Other (healed second toe wound from 3 weeks ago) Labs Labs: Laboratory Tests Test 05/31/21 11:57 05/31/21 16:30 05/31/21 20:22 06/01/21 04:00 Glucose (Fingerstick) 93 mg/dL (70-99) 82 mg/dL (70-99) 107 mg/dL (70-99) Sodium Level 140 mmol/L (136-145) Potassium Level 3.6 mmol/L (3.5-5.1) Chloride Level 104 mmol/L (98-107) Carbon Dioxide Level 27 mmol/L (21-32) Anion Gap 9 (6-14) Blood Urea Nitrogen 17 mg/dL (8-26) Creatinine 1.5 mg/dL (0.7-1.3) Estimated GFR (Cockcroft-Gault) 55.4 Glucose Level 104 mg/dL (70-99) Calcium Level 8.5 mg/dL (8.5-10.1) Magnesium Level 2.0 mg/dL (1.8-2.4) Test 06/01/21 07:29 Glucose (Fingerstick) 81 mg/dL (70-99) Assessment and Plan Assessmemt and Plan Problems Medical Problems: (1) Nausea & vomiting Status: Acute (2) NSTEMI (non-ST elevated myocardial infarction) Status: Acute Comment Review of Relevant I have reviewed the following items ravinder (where applicable) has been applied. Justifications for Admission Other Justification HERBER PENALOZA MD Jun 01, 2021 09:45
--- NOTE | 2021-06-01 09:56 | NUR ---
SS following up with discharge planning. SS reviewed pt chart and discussed with pt RN. Pt is currently on room air. COVID19 negative. PT/OT recommended long-term unit. Pt accepted at [facility], ; fax [phone]. Insurance authorization received. Discharge orders sent to [facility]. Pt will discharge today and go to [facility] between 1130 and 1230. [facility] to provide transportation. Pt and pt's RN notified. Packet placed on chart.
[2021-06-01 11:00] VITALS: BP 166/83
--- NOTE | 2021-06-01 12:57 | NUR ---
Discharge Note: KALIA HALL Discharge instructions and discharge home medications reviewed with Other facility and a copy given. All questions have been answered and understanding verbalized. Patient discharged to [facility] with transport via wheelchair.
--- NOTE | 2021-06-01 13:24 | PDOC ---
BRENDEN DOUGHERTY KILN DOOR REPAIRER 06/01/21 1324: CARDIO Progress Notes Date and Time Date of Service 06/01/2021 Time of Evaluation 1115 Subjective Subjective: No Chest Pain, No shortness of breath, No Palpitations Vitals Vitals Vital Signs Date Time Temp Pulse Resp B/P (MAP) Pulse Ox O2 Delivery O2 Flow Rate FiO2 06/01/21 11:00 98.8 90 166/83 (110) 94 Room Air 98.8 06/01/21 07:00 22 05/31/21 19:00 2.0 Weight Weight [ ] Input and Output Intake and Output Intake and Output 06/01/21 07:00 Intake Total 1220 ml Output Total 1100 ml Balance 120 ml Intake Oral 1220 ml Output Urine Total 1100 ml Laboratory Labs Laboratory Tests Test 05/31/21 16:30 05/31/21 20:22 06/01/21 04:00 06/01/21 07:29 Glucose (Fingerstick) 82 mg/dL (70-99) 107 mg/dL (70-99) 81 mg/dL (70-99) Sodium Level 140 mmol/L (136-145) Potassium Level 3.6 mmol/L (3.5-5.1) Chloride Level 104 mmol/L (98-107) Carbon Dioxide Level 27 mmol/L (21-32) Anion Gap 9 (6-14) Blood Urea Nitrogen 17 mg/dL (8-26) Creatinine 1.5 mg/dL (0.7-1.3) Estimated GFR (Cockcroft-Gault) 55.4 Glucose Level 104 mg/dL (70-99) Calcium Level 8.5 mg/dL (8.5-10.1) Magnesium Level 2.0 mg/dL (1.8-2.4) Test 06/01/21 10:54 Glucose (Fingerstick) 136 mg/dL (70-99) Physical Exam HEENT: Neck Supple W Full Motion Chest: Symmetric LUNGS: Other (basilar crackles) Heart: RRR (SR) Abdomen: Soft N/T Extremities: No Edema, Other (right radial arteriotomy site soft, clean, and dry. Neurovascular status intact ) Neurology: alert, oriented, follow commands, other (flat affect ) Assessment Assessment 1. NSTEMI 2. CAD; LHC with one-vessel disease involving the mid to distal LAD. s/p successful PCI/JAMES to the medial and distal LAD 3. DM2 4. HTN: labile episodes 5. HLP 6. 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 Acute systolic heart failure, LVEDP 20 mmHg per LHC. Appears compensated 9. Ischemic cardiomyopathy; Echo with LVEF 25%. Possible apical thrombus noted 10. Nausea/vomiting; resolved Recommendations Secondary prevention measures. ASA, Plavix, and Eliquis x1 week and then can discontinue ASA therapy and continue with Eliquis and Plavix for at least 1 year GDMT with Toprol, hydralazine, Imdur, and Jardiance. Will defer spironolactone at this time given his renal insufficiency. Consider initiation on an outpatient basis Allergy to BELEN Cardiac rehab referral Future outpt AICD in 3 months if no significnat EF improvement. Lifevest would be ideal but pt lacks comprehension of its use with likely cognitive deficit and psych issues. SNU today, follow up in office. Justicifation of Admission Dx: Justifications for Admission: Justification of Admission Dx: Yes WESLEY CHRISTIANSON MD 06/01/21 1718: BRENDEN DOUGHERTY APRN Jun 01, 2021 13:24 WESLEY CHRISTIANSON MD Jun 01, 2021 17:18
--- NOTE | 2021-06-01 13:54 | RAD ---
US LEFT LOWER EXTREMITY ARTERIAL DUPLEX EVAL Indication: Reason: Decreased pulses, left 2nd toe wound, PAD / Spl. Instructions: / History: Pain Comparison: None. Procedure: Real-time grayscale, color flow Doppler, and Doppler spectral waveform analysis of the art erial system of the lower extremity is performed. Findings: Left lower extremity: Triphasic or biphasic waveforms throughout the left lower extremity. Mildly abdias vated velocity within the left peroneal artery measures 156 cm/s. No occlusion. Moderate atheromatous plaque. IMPRESSION: 1. Moderate atheromatous plaque. 2. Mildly elevated velocity within the peroneal artery, may indicate 30-49 percent stenosis. Electronically signed by: Fili Booth DO (06/01/2021 1:51 PM) [id number]
== END 2021-06-01 12:55 | DRG 246 ==
LOC: ER 16:45 → ED HOLD 18:32 → 6 SOUTH 20:58
PROVIDERS: ADMIT Student in an Organized Health Care Education/Training Program; ATTEND Student in an Organized Health Care Education/Training Program
PROC: 027035Z Dilation of Coronary Artery, One Artery with Two Drug-eluting Intraluminal Devices, Percutaneous Approach (ICD-10-PCS; principal; 2021-05-29)
PROC: 4A023N7 Measurement of Cardiac Sampling and Pressure, Left Heart, Percutaneous Approach (ICD-10-PCS; 2021-05-29)
PROC: B2111ZZ Fluoroscopy of Multiple Coronary Arteries using Low Osmolar Contrast (ICD-10-PCS; 2021-05-29)
DX: I21.4 Non-ST elevation (NSTEMI) myocardial infarction (principal); I50.41 Acute combined systolic (congestive) and diastolic (congestive) heart failure; I13.0 Hypertensive heart and chronic kidney disease with heart failure and stage 1 through stage 4 chronic kidney disease, or unspecified chronic kidney disease; E11.22 Type 2 diabetes mellitus with diabetic chronic kidney disease; E11.621 Type 2 diabetes mellitus with foot ulcer; E78.00 Pure hypercholesterolemia, unspecified; E78.5 Hyperlipidemia, unspecified; I25.119 Atherosclerotic heart disease of native coronary artery with unspecified angina pectoris; Z20.822 Contact with and (suspected) exposure to COVID-19; I08.1 Rheumatic disorders of both mitral and tricuspid valves; I25.5 Ischemic cardiomyopathy; L97.529 Non-pressure chronic ulcer of other part of left foot with unspecified severity; N18.9 Chronic kidney disease, unspecified; Z90.81 Acquired absence of spleen; Z88.8 Allergy status to other drugs, medicaments and biological substances
CPT/HCPCS: 36415; 71045; 80048; 80053; 80061; 80307; 81001; 82962; 83735; 83880; 84443; 84484; 85025; 85027; 85520; 87426; 92928; 93005; 93306; 93458; 93926; 99152; 99153; C1725; C1874; C1894; J0360; J0780; J1644; J1815; J2250; J2270; J2405; J3010; J3490; J7030; Q9967; U0003; 97110-GP; 97116-GP; 97530-GP; 99285-25; C8929; G0378; J3246

== ENCOUNTER 2021-06-02 12:12 | Emergency (ER) | payer MEDICARE ==
[~2021-06-02] VITALS: Ht 172.7 cm; Wt 82.0 kg
[~2021-06-02 12:12] MED LIST changes: +ACET500T68 PO; +AMLO-186 PO; +APIX5TAB PO; +ASPI-886 PO; +ATOR40TA59 PO; +BLOOD PRESSURE MED PO; +CLOP75TA PO; +EMPA10TA3 PO; +FURO-68 PO; +HYDR-2869 PO; +IBUP-1007 PO; +INSU100I13 SQ; +INSU100I53 SQ; +ISOS30TA68 PO; +METO50TA4 PO; +[UNRECOGNIZED DRUG - REMARK] PO
[2021-06-02 12:37] LABS: BASO % 0 % (0-3); EOS % 0 % (0-3); HEMATOCRIT 46.7 % (39.0-53.0); HEMOGLOBIN 14.7 g/dL (13.0-17.5); LYMPH # 0.9 x10^3/uL (1.0-4.8); LYMPH % 11 % (24-48); MEAN CORPUSCULAR HEMOGLOBIN 26 pg (25-35); MEAN CORPUSCULAR HGB CONC 32 g/dL (31-37); MEAN CORPUSCULAR VOLUME 84 fL (79-100); MONO # 0.5 x10^3/uL (0.0-1.1); MONO % 6 % (0-9); NEUT % 82 % (31-73); PLATELET COUNT 216 x10^3/uL (140-400); RED BLOOD COUNT 5.59 x10^6/uL (4.30-5.70); RED CELL DISTRIBUTION WIDTH 14.2 % (11.5-14.5); WHITE BLOOD COUNT 8.5 x10^3/uL (4.0-11.0)
[2021-06-02] MEDS ORDERED: NALOXONE 0.4 MG/ML VIAL. IV ONE (12:45)
[2021-06-02 12:50] LABS: CALCIUM 8.9 mg/dL (8.5-10.1); CREATININE 1.4 mg/dL (0.7-1.3); GFR 59.9; POTASSIUM 3.7 mmol/L (3.5-5.1); PROTHROMBIN TIME PATIENT 15.6 SEC (11.7-14.0)
[2021-06-02 12:54] LABS: ALBUMIN 2.1 g/dL (3.4-5.0); ALBUMIN/GLOBULIN RATIO 0.4 (1.0-1.7); MAGNESIUM 2.2 mg/dL (1.8-2.4); PHOSPHORUS 4.5 mg/dL (2.6-4.7); TOTAL BILIRUBIN 0.6 mg/dL (0.2-1.0); TOTAL PROTEIN 7.6 g/dL (6.4-8.2)
[2021-06-02] MEDS ORDERED: PROPOFOL 100 ML IV ONE (12:57)
[2021-06-02 12:58] LABS: BARBITURATES POS (NEG); BENZODIAZEPINES NEG (NEG); CANNABINOIDS NEG (NEG); COCAINE NEG (NEG); METHADONE NEG (NEG); OPIATES POS (NEG); PHENCYCLIDINE NEG (NEG)
[2021-06-02 12:59] LABS: AMPHETAMINE/METHAMPHETAMINE NEG (NEG)
[2021-06-02 13:02] LABS: BACTERIA,URINE 0 /HPF (0-FEW); WBC,URINE OCC /HPF (0-4)
--- NOTE | 2021-06-02 13:05 | RAD ---
INDICATION: Reason: ams / Spl. Instructions: / History: . COMPARISON: None. TECHNIQUE: Axial CT images obtained through the head and cervical spine. One or more of the following individualized dose reduction techniques were utilized for this examinat ion: 1. Automated exposure control; 2. Adjustment of the mA and/or kV according to patient size; 3 . Use of iterative reconstruction technique. FINDINGS: Head: Hydrocephalus is identified with effacement of the fourth ventricle and dilatation of the lateral and third ventricle. Large amount low density is seen within the cerebellum bilaterally with some low density also seen wi thin the adjacent brainstem. There is a couple small foci of high density seen within the cerebellum including inferiorly on the l eft. The cerebellar tonsils are seen within the foramen magnum and are inferiorly displaced. Scattered regions of low density within the white matter. Cervical spine: Degenerative changes of the cervical spine with disc osteophyte complex as well as uncovertebral and facet hypertrophy with multilevel central canal and neural foraminal stenosis. No acute fracture or dislocation. There is some patchy opacities at partially visualized lung apices. Partially visualized thyroid is enlarged left greater than right with suspicion of nodules within. IMPRESSION: * Low-density is seen throughout the cerebellum as well as portion of the brainstem with mass effect within the area. Differential considerations would include edema from intracranial mass or CVA withi n the area including at the basilar artery distribution with associated edema and mass effect. There is a couple of punctate foci of high density within which could be from calcification or small foci o f hemorrhage. There is effacement of the fourth ventricle from this mass effect with hydrocephalus se en more superiorly. The cerebellar tonsils are seen extending into the foramen magnum likely from mas s effect. If further information is needed MRI with and without contrast may be helpful to further as sess. * Scattered foci of low density within the white matter. Nonspecific but can be seen with chronic sm all vessel ischemic changes. * Degenerative changes throughout the cervical spine with multilevel central canal and neural forami nal stenosis with some of these areas appearing severe in nature. * Report called to the emergency department at 12:55 PM on date of exam Electronically signed by: Heber Sloan MD (06/02/2021 1:03 PM) [id number]
[2021-06-02] MEDS ORDERED: ETOMIDATE 20 MG/10 ML VIAL. IV ONE ×2 (13:08→13:15)
[2021-06-02] MEDS ORDERED: SUCCINYLCHOLINE 200 MG/10 ML VIAL. ONE (13:08)
[2021-06-02] MEDS ORDERED: PROPOFOL 10 MG/ML (20ML) VIAL. IV ONE (13:15)
[2021-06-02] MEDS ORDERED: SUCCINYLCHOLINE 200 MG/10 ML VIAL. IV ONE (13:15)
[2021-06-02] MEDS ORDERED: SODIUM CHLORIDE 3 % 500 ML IV ONE (13:15)
[2021-06-02] MEDS ORDERED: IOHEXOL 300 MG/ML 100ML VIAL. IV ONE (13:30)
[2021-06-02] MEDS ORDERED: CONTRAST GIVEN. MC PRN (13:30)
[2021-06-02] MEDS ORDERED: PROPOFOL 100 ML IV PRN (13:45)
[2021-06-02 13:54] LABS: BASE EXCESS ABG -4 mmol/L (-3-3); HCO3 ABG 21 mmol/L (21-28); PCO2 ABG 36 mmHg (35-46); PO2 ABG 361 mmHg (65-108); SAT O2 ABG 100 % (92-99)
[2021-06-02 14:00] LABS: FIO2 ABG 100
--- NOTE | 2021-06-02 14:04 | RAD ---
INDICATION: Reason: intubation / Spl. Instructions: / History: COMPARISON: May 28, 2021 FINDINGS: Single view of chest obtained. Endotracheal tube at the mid thoracic trachea. Enteric tube is seen coursing towards the diaphragm with tip outside of field of view. Interstitial and alveolar opacities are seen throughout the bilateral lungs and moderate in severity. This appears most focal at the lower lungs bilaterally IMPRESSION: * Lines and tubes as above. * Interstitial and alveolar opacities bilaterally which could be from pulmonary edema and/or bilater al infiltrate. Electronically signed by: Heber Sloan MD (06/02/2021 2:02 PM) [id number]
[2021-06-02 14:45] LABS: PLT ESTIMATE ADEQUATE (ADEQUATE)
[2021-06-02 14:46] LABS: HYPOCHROMIA SLIGHT; TARGET CELLS OCC; TEAR DROP CELLS OCC
--- NOTE | 2021-06-02 15:11 | RAD ---
INDICATION: Reason: stroke / Spl. Instructions: OMNI 300 INJ. 75 MLS / History: COMPARISON: CT head from earlier same day TECHNIQUE: Axial CT images obtained through the head and neck arterial vasculature with intravenous contrast. 3 D images were processed per protocol. Very limited examination secondary to contrast bolus timing with only a small amount of contrast loc ated within the arterial vasculature. Estimates of carotid stenosis based on criteria that correlates with NASCET. One or more of the following individualized dose reduction techniques were utilized for this examinat ion: 1. Automated exposure control; 2. Adjustment of the mA and/or kV according to patient size; 3 . Use of iterative reconstruction technique. FINDINGS: Head and Neck Angio: Right greater than left pleural effusion partially seen with adjacent airspace consolidation which co uld be from atelectasis or infiltrate. A component of edema is also a possible contributing factor. Endotracheal tube is seen with the tip above marylin. Enteric tube is partially seen. Enlarged left lobe of the thyroid with heterogeneity. Thyroid nodule not excluded. Lymphadenopathy at the partially visualized mediastinum. Degenerative changes of spine. Portions of the left vertebral artery are poorly evaluated secondary to lack of contrast with some co ntrast seen in a portion of the vessel. The vessel is seen at the upper neck and appears narrowed as it enters the foramen magnum. There is very little or no contrast seen at for short segment just belo w the basilar artery. There is also very little or no contrast seen within the right vertebral artery near foramen magnum. The vessel is seen at the upper neck with some contrast in the lumen but poorly opacified therefore l imited evaluation of the right vertebral artery through a large portion of the neck but the vessel do es have less contrast within the anterior vessels therefore this could be secondary to areas of narro wing or focal occlusion but not well evaluated. The right common carotid artery has atherosclerotic disease within. There is some limitation of the c arotid circulation as well but is better evaluated on this exam without evidence of occlusion of the right common or internal carotid artery. Atherosclerotic disease is seen in the left carotid circulation including mixed plaque at the bulb. N o evidence of occlusion of the left common or internal carotid artery. There are some areas of less t mendosa 50 percent stenosis. Large amount plaque is seen at the carotid siphon bilaterally with regions of narrowing. Proximal aspect of the anterior and middle cerebral arteries are patent but very limited evaluation d istal to their origin secondary to contrast bolus timing. These vessels are not well evaluated much f urther than the origin. The basilar artery is small in caliber but there is a trickle of contrast seen throughout the length of the basilar artery without evidence of complete occlusion. The origin of the bilateral posterior cerebral arteries is seen but more distally the vessels not wel l evaluated secondary to contrast bolus timing and small size. Partial opacification of the dural venous sinuses with contrast therefore limited assessment of the d ural venous sinuses but there is some contrast seen within. Superior and inferior sagittal sinus appe ar opacified with contrast without evidence of occlusion that there is some limitation at the transve rse and sigmoid sinus especially on the left therefore not well evaluated and if there is concern for dural venous thrombosis an MRI is obtained magnetic resonance venogram images could be obtained at the same time. There is filling defects seen at the junction of the left transverse and sigmoid sinus but this does appear low density therefore possible that this is from a arachnoid granulation. IMPRESSION: Limited evaluation of the vessels secondary to artifact as well as suboptimal contrast bolus. The bilateral common and internal carotid arteries have atherosclerotic disease within but are patent . The vertebral arteries are more difficult to assess secondary to less contrast within the lumen and s mall size. They are only seen in portions of the neck therefore it would be difficult to exclude area s of severe stenosis or localized occlusion with distal reconstitution. As the bilateral vertebral ar teries extend through the foramen magnum bilaterally there is loss of contrast within both vessels fo r short distance at the region of edema. Possible causes of this finding include extrinsic mass effec t and narrowing from the adjacent edema as well as a primary process such as short segment bilateral high-grade stenosis or focal occlusion with distal reconstitution with another possible cause includi ng vasospasm. The basilar artery is small in caliber but contrast is seen within the lumen. The small size could be secondary to atherosclerotic disease, vasospasm or partial thrombus. Edema at the cerebellum and brainstem again seen. Again differential considerations would include pos terior circulation ischemia with associated edema but MRI could be helpful to further evaluate and en sure that there is not an alternative cause such as a mass in the area contributing. Repeat demonstration of hydrocephalus as well as effacement of the fourth ventricle and posterior fos sa mass effect with the cerebellar tonsils seen within the foramen magnum region. Filling defect at the junction of the left transverse and sigmoid sinus but this does appear low dens ity therefore possible that it is a arachnoid granulation but there is very little to no contrast see n in the left sigmoid sinus therefore limited evaluation. Could be from small size of the sinus super imposed with arachnoid granulation but if there is any clinical concern for dural vein thrombosis mag netic resonance venogram images could be obtained. Electronically signed by: Heber Sloan MD (06/02/2021 3:08 PM) [id number]
--- NOTE | 2021-06-02 15:14 | ED.ADGEN ---
Past Medical History Past Medical History: Diabetes-Type II, High Cholesterol, Hypertension Past Surgical History: Other Additional Past Surgical Histo: hemorrhoidectomy, Abdomen Trauma surgery Smoking Status: Unknown if ever smoked Alcohol Use: None Drug Use: None General Adult EDM: Chief Complaint: ALTERED MENTAL STATUS HPI: HPI: Patient is a 76 year old male coming in via EMS from [facility] which she was admitted to after discharge from this hospital yesterday.. He was found nonresponsive about 30 minutes prior to arrival. Unknown last well time but per nurse who was just coming on shift she stated that she was told he was alert oriented and his baseline in the morning. History mostly obtained by chart review as the nursing staff at the facility were not familiar with the patient. Patient was admitted to this hospital 5 days ago for NSTEMI, had a heart cath with 2 stents placed in LAD. Patient was discharged on 7 days of aspirin, Plavix, and Eliquis. Unknown if there is any falls or trauma, patient was found in his bed. Also noted on chart review the patient had a left ventricle thrombus. Review of Systems: Review of Systems: Unable to obtain Current Medications: Current Medications Medications (Trade) Dose Ordered Sig/Jossie Start Time Stop Time Status Last Admin Dose Admin Etomidate (Amidate) 30 mg 1X ONCE 06/02/21 13:15 06/02/21 13:26 DC 06/02/21 13:00 30 MG Info (CONTRAST GIVEN -- Rx MONITORING) 1 each PRN DAILY PRN 06/02/21 13:30 06/04/21 13:29 Iohexol (Omnipaque 300 Mg/ml) 75 ml 1X ONCE 06/02/21 13:30 06/02/21 13:31 DC Naloxone HCl (Narcan) 0.4 mg 1X ONCE 06/02/21 12:45 06/02/21 12:46 DC 06/02/21 12:45 0.4 MG Propofol 100 ml @ 2.46 mls/hr CONT PRN 06/02/21 13:45 06/02/21 13:05 2.46 MLS/HR Propofol (Diprivan) 200 mg 1X ONCE 06/02/21 13:15 06/02/21 13:16 DC 06/02/21 13:10 200 MG Sodium Chloride 500 ml @ 50 mls/hr 1X ONCE 06/02/21 13:15 06/02/21 23:14 06/02/21 13:29 50 MLS/HR Succinylcholine Chloride (Anectine) 100 mg 1X ONCE 06/02/21 13:15 06/02/21 13:16 DC 06/02/21 13:00 100 MG Allergies: Allergies: Allergies Coded Allergies Type Severity Reaction Last Updated Verified insulin regular Adverse Reaction Intermediate Nausea, cramps in legs 06/02/21 Yes lisinopril Adverse Reaction Intermediate coughing 06/02/21 Yes Physical Exam: PE: Constitutional: Well developed, well nourished, unresponsive HENT: Normocephalic, atraumatic, bilateral external ears normal, nose normal. [] Eyes: Pupils 2 mm, nonreactive, symmetric, conjunctiva normal, no discharge. [] Neck: No rigidity, supple, no stridor. [] Cardiovascular: Regular rate and rhythm, brisk cap refill [] Lungs & Thorax: Non labored symmetric respirations, no tachypnea or respiratory distress. Bilateral coarse breath sounds. Shallow respirations [] Abdomen: Soft, nondistended, no guarding to palpation. Skin: Warm, dry, no erythema, no rash. [] Back: Unremarkable Extremities: No deformities, no lower extremity edema [] Neurologic: GCS 3, nonpurposeful movements in response to painful stimuli Psychologic: Unable to assess Current Patient Data: Labs: Laboratory Tests Test 06/02/21 12:19 06/02/21 12:22 06/02/21 12:41 O2 Saturation 100 % (92-99) H Arterial Blood pH 7.38 (7.35-7.45) Arterial Blood pCO2 at Patient Temp 36 mmHg (35-46) Arterial Blood pO2 at Patient Temp 361 mmHg (65-108) H Arterial Blood HCO3 21 mmol/L (21-28) Arterial Blood Base Excess -4 mmol/L (-3-3) L FiO2 100 White Blood Count 8.5 x10^3/uL (4.0-11.0) Red Blood Count 5.59 x10^6/uL (4.30-5.70) Hemoglobin 14.7 g/dL (13.0-17.5) Hematocrit 46.7 % (39.0-53.0) Mean Corpuscular Volume 84 fL (79-100) Mean Corpuscular Hemoglobin 26 pg (25-35) Mean Corpuscular Hemoglobin Concent 32 g/dL (31-37) Red Cell Distribution Width 14.2 % (11.5-14.5) Platelet Count 216 x10^3/uL (140-400) Neutrophils (%) (Auto) 82 % (31-73) H Lymphocytes (%) (Auto) 11 % (24-48) L Monocytes (%) (Auto) 6 % (0-9) Eosinophils (%) (Auto) 0 % (0-3) Basophils (%) (Auto) 0 % (0-3) Neutrophils # (Auto) 7.0 x10^3/uL (1.8-7.7) Lymphocytes # (Auto) 0.9 x10^3/uL (1.0-4.8) L Monocytes # (Auto) 0.5 x10^3/uL (0.0-1.1) Eosinophils # (Auto) 0.0 x10^3/uL (0.0-0.7) Basophils # (Auto) 0.0 x10^3/uL (0.0-0.2) Platelet Estimate Adequate (ADEQUATE) Large Platelets Occ Hypochromasia Slight Target Cells Occ Tear Drop Cells Occ Prothrombin Time 15.6 SEC (11.7-14.0) H Prothrombin Time INR 1.3 (0.8-1.1) H Sodium Level 138 mmol/L (136-145) Potassium Level 3.7 mmol/L (3.5-5.1) Chloride Level 102 mmol/L (98-107) Carbon Dioxide Level 23 mmol/L (21-32) Anion Gap 13 (6-14) Blood Urea Nitrogen 23 mg/dL (8-26) Creatinine 1.4 mg/dL (0.7-1.3) H Estimated GFR (Cockcroft-Gault) 59.9 BUN/Creatinine Ratio 16 (6-20) Glucose Level 138 mg/dL (70-99) H Lactic Acid Level 1.1 mmol/L (0.4-2.0) Calcium Level 8.9 mg/dL (8.5-10.1) Phosphorus Level 4.5 mg/dL (2.6-4.7) Magnesium Level 2.2 mg/dL (1.8-2.4) Total Bilirubin 0.6 mg/dL (0.2-1.0) Aspartate Amino Transferase (AST) 33 U/L (15-37) Alanine Aminotransferase (ALT) 13 U/L (16-63) L Alkaline Phosphatase 124 U/L (46-116) H Ammonia < 10 mcmol/L (11-34) L Troponin I High Sensitivity 605 ng/L (4-75) H YO-Mvl-W-Type Natriuretic Peptide 44130 pg/mL (0-124) H Total Protein 7.6 g/dL (6.4-8.2) Albumin 2.1 g/dL (3.4-5.0) L Albumin/Globulin Ratio 0.4 (1.0-1.7) L Ethyl Alcohol Level < 10 mg/dL (0-10) Urine Collection Type Unknown Urine Color (Auto) Yellow Urine Turbidity Clear Urine pH (Auto) 6.0 (<5.0-8.0) Urine Specific Quentin 1.024 (1.000-1.030) Urine Protein (Auto) 300 mg/dL (Negative) Urine Glucose (Auto)(UA) >=1000 mg/dL (Negative) Urine Ketones (Auto) 20 mg/dL (Negative) Urine Blood (Auto) Moderate (Negative) Urine Nitrite Negative (Negative) Urine Bilirubin (Auto) Negative (Negative) Urine Urobilinogen (Auto) Normal mg/dL (Normal) Urine Leukocyte Esterase (Auto) Negative (Negative) Urine RBC 11-20 /HPF (0-2) Urine WBC Occ /HPF (0-4) Urine Squamous Epithelial Cells Mod /LPF Urine Bacteria 0 /HPF (0-FEW) Urine Mucus Slight /LPF Urine Opiates Screen Pos (NEG) Urine Methadone Screen Neg (NEG) Urine Barbiturates Pos (NEG) Urine Phencyclidine Screen Neg (NEG) Urine Amphetamine/Methamphetamine Neg (NEG) Urine Benzodiazepines Screen Neg (NEG) Urine Cocaine Screen Neg (NEG) Urine Cannabinoids Screen Neg (NEG) Urine Ethyl Alcohol Neg (NEG) Laboratory Tests 06/02/21 12:22 Laboratory Tests 06/02/21 12:22 Vital Signs: Vital Signs Date Time Temp Pulse Resp B/P (MAP) Pulse Ox O2 Delivery O2 Flow Rate FiO2 06/02/21 14:58 98 14 169/87 (114) 97 Ventilator 06/02/21 13:00 97.8 97.8 EKG: EKG: Sinus tachycardia, left axis deviation, 1 PVC, no STEMI. [] Heart Score: C/O Chest Pain: N/A Risk Factors: Risk Factors: DM, Current or recent (<one month) smoker, HTN, HLP, family history of CAD, obesity. Risk Scores: Score 0 - 3: 2.5% MACE over next 6 weeks - Discharge Home Score 4 - 6: 20.3% MACE over next 6 weeks - Admit for Clinical Observation Score 7 - 10: 72.7% MACE over next 6 weeks - Early Invasive Strategies Radiology/Procedures: Radiology/Procedures: [facility] [address] [place] [address] IMAGING REPORT Signed PATIENT: KALIA HALL NACCOUNT: [id number] : 1945 LOCATION: ER AGE: 76 SEX: M EXAM STATUS: PRE ER ORD. PHYSICIAN: LIONEL ZELAYA MD REASON: intubation PROCEDURE: CHEST AP ONLY INDICATION: Reason: intubation / Spl. Instructions: / History: COMPARISON: May 28, 2021 FINDINGS: Single view of chest obtained. Endotracheal tube at the mid thoracic trachea. Enteric tube is seen coursing towards the diaphragm with tip outside of field of view. Interstitial and alveolar opacities are seen throughout the bilateral lungs and moderate in severity. This appears most focal at the lower lungs bilaterally IMPRESSION: * Lines and tubes as above. * Interstitial and alveolar opacities bilaterally which could be from pulmonary edema and/or bilateral infiltrate. Electronically signed by: Sean Sloan MD (06/02/2021 2:02 PM) [id number] DICTATED and SIGNED BY: SEAN SLOAN MD DATE: 06/02/21 1359 [][facility] [address] [place] [address] IMAGING REPORT Signed PATIENT: KALIA HALL NACCOUNT: [id number] : 1945 LOCATION: ER AGE: 76 SEX: M EXAM STATUS: PRE ER ORD. PHYSICIAN: LIONEL ZELAYA MD REASON: ams PROCEDURE: CT HEAD AND CERVICAL SPINE WO INDICATION: Reason: ams / Spl. Instructions: / History: . COMPARISON: None. TECHNIQUE: Axial CT images obtained through the head and cervical spine. One or more of the following individualized dose reduction techniques were utilized for this examination: 1. Automated exposure control; 2. Adjustment of the mA and/or kV according to patient size; 3. Use of iterative reconstruction technique. FINDINGS: Head: Hydrocephalus is identified with effacement of the fourth ventricle and d ilatation of the lateral and third ventricle. Large amount low density is seen within the cerebellum bilaterally with some low density also seen within the adjacent brainstem. There is a couple small foci of high density seen within the cerebellum including inferiorly on the left. The cerebellar tonsils are seen within the foramen magnum and are inferiorly displaced. Scattered regions of low density within the white matter. Cervical spine: Degenerative changes of the cervical spine with disc osteophyte complex as well as uncovertebral and facet hypertrophy with multilevel central canal and neural foraminal stenosis. No acute fracture or dislocation. There is some patchy opacities at partially visualized lung apices. Partially visualized thyroid is enlarged left greater than right with suspicion of nodules within. IMPRESSION: * Low-density is seen throughout the cerebellum as well as portion of the brainstem with mass effect within the area. Differential considerations would include edema from intracranial mass or CVA within the area including at the basilar artery distribution with associated edema and mass effect. There is a couple of punctate foci of high density within which could be from calcification or small foci of hemorrhage. There is effacement of the fourth ventricle from this mass effect with hydrocephalus seen more superiorly. The cerebellar tonsils are seen extending into the foramen magnum likely from mass effect. If further information is needed MRI with and without contrast may be helpful to further assess. * Scattered foci of low density within the white matter. Nonspecific but can be seen with chronic small vessel ischemic changes. * Degenerative changes throughout the cervical spine with multilevel central canal and neural foraminal stenosis with some of these areas appearing severe in nature. * Report called to the emergency department at 12:55 PM on date of exam Electronically signed by: Sean Sloan MD (06/02/2021 1:03 PM) [id number] DICTATED and SIGNED BY: SEAN SLOAN MD DATE: 06/02/21 1238 [facility] [address] [place] [address] IMAGING REPORT Signed PATIENT: KALIA HALL NACCOUNT: [id number] : 1945 LOCATION: ER AGE: 76 SEX: M EXAM STATUS: REG ER ORD. PHYSICIAN: LIONEL ZELAYA MD REASON: stroke PROCEDURE: CT ANGIOGRAPHY HEAD AND NECK INDICATION: Reason: stroke / Spl. Instructions: OMNI 300 INJ. 75 MLS / History: COMPARISON: CT head from earlier same day TECHNIQUE: Axial CT images obtained through the head and neck arterial vasculature with intravenous contrast. 3D images were processed per protocol. Very limited examination secondary to contrast bolus timing with only a small amount of contrast located within the arterial vasculature. Estimates of carotid stenosis based on criteria that correlates with NASCET. One or more of the following individualized dose reduction techniques were utilized for this examination: 1. Automated exposure control; 2. Adjustment of the mA and/or kV according to patient size; 3. Use of iterative reconstruction technique. FINDINGS: Head and Neck Angio: Right greater than left pleural effusion partially seen with adjacent airspace consolidation which could be from atelectasis or infiltrate. A component of edema is also a possible contributing factor. Endotracheal tube is seen with the tip above marylin. Enteric tube is partially seen. Enlarged left lobe of the thyroid with heterogeneity. Thyroid nodule not excluded. Lymphadenopathy at the partially visualized mediastinum. Degenerative changes of spine. Portions of the left vertebral artery are poorly evaluated secondary to lack of contrast with some contrast seen in a portion of the vessel. The vessel is seen at the upper neck and appears narrowed as it enters the foramen magnum. There is very little or no contrast seen at for short segment just below the basilar artery. There is also very little or no contrast seen within the right vertebral artery near foramen magnum. The vessel is seen at the upper neck with some contrast in the lumen but poorly opacified therefore limited evaluation of the right vertebral artery through a large portion of the neck but the vessel does have less contrast within the anterior vessels therefore this could be secondary to areas of narrowing or focal occlusion but not well evaluated. The right common carotid artery has atherosclerotic disease within. There is some limitation of the carotid circulation as well but is better evaluated on this exam without evidence of occlusion of the right common or internal carotid artery. Atherosclerotic disease is seen in the left carotid circulation including mixed plaque at the bulb. No evidence of occlusion of the left common or internal carotid artery. There are some areas of less than 50 percent stenosis. Large amount plaque is seen at the carotid siphon bilaterally with regions of narrowing. Proximal aspect of the anterior and middle cerebral arteries are patent but very limited evaluation distal to their origin secondary to contrast bolus timing. These vessels are not well evaluated much further than the origin. The basilar artery is small in caliber but there is a trickle of contrast seen throughout the length of the basilar artery without evidence of complete occlusion. The origin of the bilateral posterior cerebral arteries is seen but more distally the vessels not well evaluated secondary to contrast bolus timing and small size. Partial opacification of the dural venous sinuses with contrast therefore limited assessment of the dural venous sinuses but there is some contrast seen within. Superior and inferior sagittal sinus appear opacified with contrast without evidence of occlusion that there is some limitation at the transverse and sigmoid sinus especially on the left therefore not well evaluated and if there is concern for dural venous thrombosis an MRI is obtained magnetic resonance venogram images could be obtained at the same time. There is filling defects seen at the junction of the left transverse and sigmoid sinus but this does appear low density therefore possible that this is from a arachnoid granulation. IMPRESSION: Limited evaluation of the vessels secondary to artifact as well as suboptimal contrast bolus. The bilateral common and internal carotid arteries have atherosclerotic disease within but are patent. The vertebral arteries are more difficult to assess secondary to less contrast within the lumen and small size. They are only seen in portions of the neck therefore it would be difficult to exclude areas of severe stenosis or localized occlusion with distal reconstitution. As the bilateral vertebral arteries extend through the foramen magnum bilaterally there is loss of contrast within both vessels for short distance at the region of edema. Possible causes of this finding include extrinsic mass effect and narrowing from the adjacent edema as well as a primary process such as short segment bilateral high-grade stenosis or focal occlusion with distal reconstitution with another possible cause including vasospasm. The basilar artery is small in caliber but contrast is seen within the lumen. The small size could be secondary to atherosclerotic disease, vasospasm or partial thrombus. Edema at the cerebellum and brainstem again seen. Again differential considerations would include posterior circulation ischemia with associated edema but MRI could be helpful to further evaluate and ensure that there is not an alternative cause such as a mass in the area contributing. Repeat demonstration of hydrocephalus as well as effacement of the fourth ventricle and posterior fossa mass effect with the cerebellar tonsils seen within the foramen magnum region. Filling defect at the junction of the left transverse and sigmoid sinus but this does appear low density therefore possible that it is a arachnoid granulation but there is very little to no contrast seen in the left sigmoid sinus therefore limited evaluation. Could be from small size of the sinus superimposed with ar achnoid granulation but if there is any clinical concern for dural vein thrombosis magnetic resonance venogram images could be obtained. Electronically signed by: Sean Sloan MD (06/02/2021 3:08 PM) [id number] DICTATED and SIGNED BY: SEAN SLOAN MD DATE: 06/02/21 143 Total critical care time: 90 The time involved in the performance of separately reportable/billable procedures was not counted toward critical care time. Due to a high probability of clinically significant, life-threatening deterioration the patient required a high level of care to intervene emergently and I personally spent this critical time directly and personally managing the patient. The critical care time included obtaining a history, examination of the patient, assessment of vital signs, ordering and review of studies, arranging urgent treatment with development of a management plan, evaluation of patient's response to treatment, frequent reassessment, and discussions with other providers and/or family members. Patient was intubated in emergent fashion and no consent was obtained. Patient was [] sedated and paralyzed with etomidate and succinylcholine. A glide scope with a size 4 blade was used, cords were visualized and a size 7.5 endotracheal tube was placed during first attempt. Endotracheal tube cuff was inflated and confirmation established by visualization of the cords passing the tubes, bilateral breath sounds, color change, and chest x-ray. Course & Med Decision Making: Course & Med Decision Making Patient intubated for airway protection, consult placed to [facility] for further management since our neurosurgeon is out of town. Concern for a part of the left ventricular thrombus causing a basilar stroke. Patient started on hypertonic saline for cerebral edema. Dragon Disclaimer: Dragon Disclaimer: This electronic medical record was generated, in whole or in part, using a voice recognition dictation system. Departure Departure Impression: Primary Impression: Cerebral edema Additional Impression: Hydrocephalus Disposition: 02 SHORT TERM HOSPITAL Condition: CRITICAL Referrals: NO PCP (PCP) Problem Qualifiers LIONEL ZELAYA MD Jun 02, 2021 15:14
[2021-06-02 16:04] VITALS: BP 155/78
--- NOTE | 2021-06-03 04:05 | EKG ---
[facility] [address] [place] [address] Test Date: 2021-06-02 Test Time: 12:21:14 Pat Name: KALIA HALL Department: Room: Gender: M [employer]: : 1945 Requested By: LIONEL ZELAYA Order Number: [id number] Reading MD: Aftab Curiel MD Measurements Intervals [place] Rate: 103 P: 56 MA: 144 QRS: -35 QRSD: 110 T: 112 QT: 352 QTc: 463 Interpretive Statements SINUS TACHYCARDIA PVC PRIOR INFERIOR INFARCT Electronically Signed On 06-05-2021 7:09:59 CDT by Aftab Curiel MD
== END 2021-06-02 16:07 | disposition short-term general hospital (02) ==
LOC: ER 12:12
DX: G93.6 Cerebral edema (principal); G91.9 Hydrocephalus, unspecified; E11.9 Type 2 diabetes mellitus without complications; E78.00 Pure hypercholesterolemia, unspecified; I10 Essential (primary) hypertension; Z88.8 Allergy status to other drugs, medicaments and biological substances
CPT/HCPCS: 31500; 36415; 51702; 70450; 70496; 70498; 71045; 72125; 80053; 80307; 81001; 82140; 82805; 83605; 83735; 83880; 84100; 84484; 85025; 85610; 87040; 93005; 96374; 99291; 99292; G0480; J0330; J2310; J2704; J3490; 94002